=== PATIENT | female | born 1950 | race Hispanic/Latino ===

== ENCOUNTER 2019-08-14 13:35 | Emergency (ER) | payer MEDICARE ==
--- NOTE | 2019-08-14 14:16 | Emergency Department Report ---
ED Fall HPI - General Stated Complaint: FALL Time Seen by Provider: 08/14/19 14:15 Source: patient, EMS, RN notes reviewed, old records reviewed Mode of arrival: Stretcher Limitations: No Limitations - History of Present Illness Initial Comments: PT IS A 68 YO FEMALE WHO COMES TO ER FROM [place] [facility] FALL. SHE WAS IN THE BATHROOM WHEN STAFF FOUND HER ON THE FLOOR. THERE WAS ONLY A PERIOD OF 15 MINUTES WHERE BETWEEN WHEN STAFF LEFT HER AND THEN FOUND HER ON FLOOR. NO LOC. THEY STATE SHE IS AT HER USUAL MENTATION- PT HAS DEMENTIA. PT DENIES PAIN ON ARRIVAL TO ER BUT SHE IS A POOR INFORMANT GIVEN HER DEMENTIA CT HEAD/CSPINE ORDERED [facility] DENIES ANY RECENT COMPLAINTS OR PROBLEMS. 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 Witnessed: yes, by living facility s Place Fall Occurred: home Loss of Consciousness: none Prolonged Down Time?: no Location: head Associated Symptoms: denies - Related Data Previous Rx's Medication Instructions Recorded Last Taken Type levoFLOXacin [Levaquin TAB] 500 mg PO BID #10 tablet 08/14/19 Unknown Rx Allergies Allergy/AdvReac Type Severity Reaction Status Date / Time codeine Allergy Unknown Verified 08/14/19 14:40 pravastatin Allergy Unknown Verified 08/14/19 14:40 ED Review of Systems ROS: Stated complaint: FALL Other details as noted in HPI Comment: All other systems reviewed and negative ED Past Medical Hx - Past Medical History Previous Medical History?: Yes Hx Hypertension: Yes Hx Dementia: Yes - Family History Family history: no significant - Social History Smoking Status: Never Smoker Substance Use Type: None - Medications Home Medications: Home Medications Medication Instructions Recorded Confirmed Last Taken Type levoFLOXacin [Levaquin TAB] 500 mg PO BID #10 tablet 08/14/19 Unknown Rx ED Physical Exam - General General appearance: alert - Head Head exam: Present: atraumatic, normocephalic - Eye Eye exam: Present: normal appearance - ENT ENT exam: Present: mucous membranes dry - Neck Neck exam: Present: normal inspection - Respiratory Respiratory exam: Present: normal lung sounds bilaterally. Absent: respiratory distress - Cardiovascular Cardiovascular Exam: Present: regular rate, normal rhythm. Absent: systolic murmur, diastolic murmur, rubs, gallop - GI/Abdominal GI/Abdominal exam: Present: soft, normal bowel sounds - Rectal Rectal exam: Present: deferred - Extremities Exam Extremities exam: Present: normal inspection - Back Exam Back exam: Present: normal inspection - Neurological Exam Neurological exam: Present: alert, altered - Psychiatric Psychiatric exam: Present: agitated, anxious - Skin Skin exam: Present: warm, dry, intact, pallor. Absent: rash ED Course Vital Signs 08/14/19 08/14/19 14:10 18:00 Temperature 97.7 F Pulse Rate 70 62 Respiratory 16 18 Rate Blood Pressure 152/40 Blood Pressure 159/50 [Left] O2 Sat by Pulse 100 99 Oximetry - Reevaluation(s) Reevaluation #1: 08/14/19 17:24 MEDICATED WITH ATIVAN DUE TO HER AGITATION IN ER. ED Medical Decision Making - Lab Data Result diagrams: 08/14/19 14:55 08/14/19 14:55 - Radiology Data Radiology results: report reviewed, image reviewed interpreted by me: rick cabrera - Medical Decision Making Labs 08/14/19 08/14/19 08/14/19 14:55 14:55 16:55 WBC 10.9 RBC 3.65 Hgb 10.7 Hct 32.0 MCV 88 MCH 29 MCHC 34 RDW 16.5 H Plt Count 820 H Add Manual Diff Complete Total Counted 100 Seg Neuts % (Manual) 77.0 H Band Neutrophils % 0 Lymphocytes % (Manual) 13.0 L Reactive Lymphs % (Man) 0 Monocytes % (Manual) 9.0 H Eosinophils % (Manual) 1.0 Basophils % (Manual) 0 Metamyelocytes % 0 Myelocytes % 0 Promyelocytes % 0 Blast Cells % 0 Nucleated RBC % Not Reportable Seg Neutrophils # Man 8.4 H Band Neutrophils # 0.0 Lymphocytes # (Manual) 1.4 Abs React Lymphs (Man) 0.0 Monocytes # (Manual) 1.0 H Eosinophils # (Manual) 0.1 Basophils # (Manual) 0.0 Metamyelocytes # 0.0 Myelocytes # 0.0 Promyelocytes # 0.0 Blast Cells # 0.0 WBC Morphology Not Reportable Hypersegmented Neuts Not Reportable Hyposegmented Neuts Not Reportable Hypogranular Neuts Not Reportable Smudge Cells Not Reportable Toxic Granulation Not Reportable Toxic Vacuolation Not Reportable Dohle Bodies Not Reportable Pelger-Huet Anomaly Not Reportable Awa Rods Not Reportable Platelet Estimate Not Reportable Clumped Platelets Not Reportable Plt Clumps, EDTA Not Reportable Large Platelets Not Reportable Giant Platelets Not Reportable Platelet Satelliting Not Reportable Plt Morphology Comment Not Reportable RBC Morphology Normal Dimorphic RBCs Not Reportable Polychromasia Not Reportable Hypochromasia Not Reportable Poikilocytosis Not Reportable Anisocytosis Not Reportable Microcytosis Not Reportable Macrocytosis Not Reportable Spherocytes Not Reportable Pappenheimer Bodies Not Reportable Sickle Cells Not Reportable Target Cells Not Reportable Tear Drop Cells Not Reportable Ovalocytes Not Reportable Helmet Cells Not Reportable [place] Bodies Not Reportable [place] Rings Not Reportable Michael Cells Not Reportable Bite Cells Not Reportable Crenated Cell Not Reportable Elliptocytes Not Reportable Acanthocytes (Spur) Not Reportable Rouleaux Not Reportable Hemoglobin C Crystals Not Reportable Schistocytes Not Reportable Malaria parasites Not Reportable [place] Bodies Not Reportable Hem Pathologist Commnt No Sodium 138 Potassium 4.2 Chloride 101.4 Carbon Dioxide 24 Anion Gap 17 BUN 16 Creatinine 0.6 L Estimated GFR > 60 BUN/Creatinine Ratio 27 Glucose 180 H Calcium 8.3 L Total Bilirubin 0.20 AST 15 ALT 6 L Alkaline Phosphatase 77 Total Protein 6.2 L Albumin 3.2 L Albumin/Globulin Ratio 1.1 Urine Color Yellow Urine Turbidity Slightly-cloudy Urine pH 5.0 Ur Specific [place] 1.019 Urine Protein <15 mg/dl Urine Glucose (UA) Neg Urine Ketones 20 Urine Blood Neg Urine Nitrite Neg Urine Bilirubin Neg Urine Urobilinogen < 2.0 Ur Leukocyte Esterase Sm Urine WBC (Auto) 27.0 H Urine RBC (Auto) 1.0 U Epithel Cells (Auto) < 1.0 Urine Bacteria (Auto) 1+ Urine Mucus Few Vital Signs 08/14/19 14:10 Temperature 97.7 F Pulse Rate 70 Respiratory 16 Rate Blood Pressure 152/40 O2 Sat by Pulse [address] neg HEAD/SPINE urine noted PT DENIES ABD PAIN OR BACK PAIN NO LOCALIZING ON EXAM medicated in ER for UTI culture pending WBC normal on arrival to ER pt was in her usual state of health - she has AMS due to her dementia MEDICATED FOR UTI WITH NS/ROCEPHIN IN ER MEDICATED WITH ATIVAN FOR AGITATION DC HOME WITH DC PLAN OF CARE- RN TO REVIEW WITH SNF PT TO GET FOLLOW UP WITH PCP TO BE SURE UTI GOES AWAY WITH LEVAQUIN TREATMENT PT HAS HAD NO FEVER, TACHYCARDIA, OR HYPOTENSION - Differential Diagnosis ro fx Critical care attestation.: If time is entered above; I have spent that time in minutes in the direct care of this critically ill patient, excluding procedure time. ED Disposition Clinical Impression: UTI (urinary tract infection), Dehydration, Fall from ground level, Dementia Disposition: DC-01 TO HOME OR SELFCARE Is pt being admited?: No Does the pt Need Aspirin: No Condition: Stable Instructions: Urinary Tract Infection in Women (ED) Additional Instructions: KEEP PT WELL HYDRATED MOTRIN AND OR TYLENOL FOR PAIN OR FEVER ANTIBIOTIC UNTIL GONE PT NEEDS TO SEE PCP AFTER ANTIBIOTIC IS DONE TO BE SURE THIS HAS GOTTEN BETTER UTI IN ELDERLY CAN RESULT IN FALLS AND ALTERED MENTAL STATUS Prescriptions: levoFLOXacin [Levaquin TAB] 500 mg PO BID #10 tablet Referrals: WHIT BANSAL MD [Staff Physician] - 3-5 Days Time of Disposition: 17:20
[2019-08-14 15:09] LABS: Hemoglobin 10.7 gm/dl (10.1-14.3); Mean Corpuscular HGB Conc 34 % (30-34); Mean Corpuscular Volume 88 fl (79-97); Platelet Count 820 K/mm3 (140-440); Red Blood Count 3.65 M/mm3 (3.65-5.03); Red Cell Distribution Width 16.5 % (13.2-15.2)
[2019-08-14 15:32] LABS: Alanine Aminotransferase 6 units/L (7-56); Albumin 3.2 g/dL (3.9-5); BUN/Creatinine Ratio 27; Blood Urea Nitrogen 16 mg/dL (7-17); Calcium 8.3 mg/dL (8.4-10.2); Hemolysis Index 13
--- NOTE | 2019-08-14 15:37 | Cat Scan Report ---
CT HEAD WITHOUT CONTRAST INDICATION / CLINICAL INFORMATION: Fall with loss of consciousness, altered mental status. TECHNIQUE: Axial imaging performed from the skull apex through the skull base without the use of cont rast. Sagittal and coronal reformatted images. All CT scans at this location are performed using CT dose reduction for ALARA by means of automated exposure control. COMPARISON: None available. FINDINGS: CEREBRAL PARENCHYMA: Mild cortical volume loss is noted. Chronic cortical infarct in the posterior ri ght frontal lobe measures up to 2.1 cm in diameter. A smaller chronic cortical infarct in the posteri or superior right frontal lobe measures 1.3 cm. No evidence for acute ischemia, mass or mass effect o n noncontrast CT. HEMORRHAGE: None. EXTRA-AXIAL SPACES: Normal in size and morphology for the patient's age. VENTRICULAR SYSTEM: Normal in size and morphology for the patient's age. MIDLINE SHIFT OR HERNIATION: None. CEREBELLUM / BRAINSTEM: No significant abnormality. CALVARIUM: No significant abnormality. ORBITS: Normal as visualized. PARANASAL SINUSES / MASTOID AIR CELLS: Normal as visualized. SOFT TISSUES of HEAD: No significant abnormality. ADDITIONAL FINDINGS: None. IMPRESSION: No acute intracranial abnormality. Mild volume loss. Chronic right frontal lobe infarcts as described . Signer Name: Terry Mujica Jr, MD Signed: 08/14/2019 3:32 PM Workstation Name: [id number]
[2019-08-14 16:32] LABS: Basophils % (Manual) 0 % (0.0-1.8); Total Cells Counted 100
[2019-08-14 16:33] LABS: RBC Morphology Normal
[2019-08-14] MEDS ORDERED: clonazePAM 0.5 MG TAB PO ONE (16:55)
--- NOTE | 2019-08-14 16:55 | Cat Scan Report ---
CT cervical spine wo con INDICATION / CLINICAL INFORMATION: 68 years Female; fall with loc. TECHNIQUE: Axial CT images of the cervical spine were obtained. Sagittal and coronal reformatted images were pr oduced. All CT scans at this location are performed using CT dose reduction for ALARA by means of aut omated exposure control. COMPARISON: None available. FINDINGS: POST-SURGICAL CHANGES: None. ALIGNMENT: Normal cervical lordosis seen without significant scoliosis. VERTEBRAE: There is no CT evidence of acute fracture involving the cervical spine at. INTRAVERTEBRAL DISCS: The central disc bulge at C4-5 appears to efface the ventral subarachnoid space . There is mild right neural foraminal narrowing. There is mild disc space narrowing at C5-6 with spo ndylosis which also effaces the ventral subarachnoid space. There appears be moderate right neural fo raminal narrowing. PARASPINAL SOFT TISSUES: No prevertebral soft tissue fluid collections are identified. There are mult iple surgical clips along the carotid sheaths at. ADDITIONAL FINDINGS: None. IMPRESSION: 1. There is no CT evidence of acute fracture involving the cervical spine. Signer Name: Boni Yusuf MD Signed: 08/14/2019 4:51 PM Workstation Name: [id number]
[2019-08-14] MEDS ORDERED: LORazepam 2 MG/ML VIAL IM ONE (16:58)
[2019-08-14] MEDS ORDERED: LORazepam 2 MG/ML VIAL ONE (17:00)
[2019-08-14 17:06] LABS: Bacteria,Urine 1+ /HPF (Negative); Bilirubin,Urine NEG (Negative); Blood,Urine NEG (Negative); Color,Urine Yellow (Yellow); Mucus,Urine FEW /HPF; Protein,Urine <15 mg/dL mg/dL (Negative); Urobilinogen,Urine < 2.0 mg/dL (<2.0)
[2019-08-14] MEDS ORDERED: SODIUM CHLORIDE 0.9% 1000 ML 1,000 ML IV ONE (17:12)
[2019-08-14] MEDS ORDERED: cefTRIAXone/NS 1 GM/50 ML 1 GM/50 ML BAG IV ONE (17:12)
[2019-08-14 19:25] VITALS: BP 127/60
== END 2019-08-14 19:00 | disposition home or self-care (01) ==
LOC: ED 13:35
DX: F03.90 Unspecified dementia, unspecified severity, without behavioral disturbance, psychotic disturbance, mood disturbance, and anxiety (principal); N39.0 Urinary tract infection, site not specified; E86.0 Dehydration; I10 Essential (primary) hypertension; Z88.6 Allergy status to analgesic agent; Z88.8 Allergy status to other drugs, medicaments and biological substances; W18.39XA Other fall on same level, initial encounter; Y93.89 Activity, other specified; Y92.89 Other specified places as the place of occurrence of the external cause; Y99.8 Other external cause status
CPT/HCPCS: 36415; 70450; 72125; 80053; 81001; 85007; 85025; 87086; 96365; 96372; 99284; J0696; J2060; J7030

== ENCOUNTER 2019-09-06 21:08 | Inpatient (IN) | payer MEDICARE ==
--- NOTE | 2019-09-06 22:20 | Emergency Department Report ---
ED CPR HPI - General Chief Complaint: Dyspnea/Respdistress Stated Complaint: ASPIRATION Time Seen by Provider: 09/06/19 22:14 Source: EMS Mode of arrival: Stretcher Limitations: Altered Mental Status, Physical Limitation - History of Present Illness Initial Comments: Patient is a 68-year-old female that presents emergency room for difficulty breathing. Patient was choking on a meatball at her senior care and the staff attempted the Heimlich but were never successful. The EMS then attempted a Heimlich valve on process. Per EMS report the patient then went asystole and the patient was laid on the ground in order to attempt intubation. CPR was s tarted and the patient was intubated and subsequently vomited and extubated herself. Patient then regained spontaneous return of circulation. Patient self extubated. Patient not asked to intubate at this time. Patient was then brought to the ER for evaluation. Patient has history of dementia and is currently A&O x1. Patient denies pain. Patient has facial bruising and per the medical record the patient was seen here a few days ago for a fall. MD Complaint: stopped breathing -: minute(s) Place: home Bystander CPR Performed: Yes AED Applied by Bystander/Scraper Tender: No Initial Findings in the Field: lethargic ROSC in the Field: Yes Associated Injuries: No Associated Symptoms: shortness of breath, other (chocking) Treatments Prior to Arrival: intubation (and extubation) - Related Data Home Medications Medication Instructions Recorded Confirmed Last Taken Aspirin [Aspirin BABY CHEW TAB] 81 mg PO QDAY 08/15/19 08/15/19 Unknown Cholecalciferol Vit D3 [Vitamin D3 1,000 units PO QDAY 08/15/19 08/15/19 Unknown 1,000 UNIT TAB] Divalproex Dr [DepLady WISE] 500 mg PO BID 08/15/19 08/15/19 Unknown Ferrous Sulfate [Iron 325 MG] 325 mg PO QDAY 08/15/19 08/15/19 Unknown Hydroxyzine HCl [hydrOXYzine] 25 mg PO Q6H 08/15/19 08/15/19 Unknown Insulin Glargine,Hum.rec.anlog 100 unit SQ QDAY 08/15/19 08/15/19 Unknown [Jacquie Silva U-100] Memantine [Namenda] 10 mg PO HS 08/15/19 08/15/19 Unknown clonazePAM [ Klonopin] 0.5 mg PO BID PRN 08/15/19 08/15/19 Unknown donepeziL [Aricept] 10 mg PO QDAY 08/15/19 08/15/19 Unknown levoFLOXacin [Levaquin TAB] 500 mg PO BID 08/15/19 08/15/19 Unknown risperiDONE [RisperDAL] 1 mg PO HS 08/15/19 08/15/19 Unknown traMADoL [Ultram] 50 mg PO Q6HR PRN 08/15/19 08/15/19 Unknown traZODone [Desyrel] 50 mg PO QHS 08/15/19 08/15/19 Unknown Allergies Allergy/AdvReac Type Severity Reaction Status Date / Time No Known Allergies Allergy Verified 08/15/19 15:35 ED Review of Systems ROS: Stated complaint: ASPIRATION Other details as noted in HPI Comment: Unobtainable due to pts medical conditions ED Past Medical Hx - Past Medical History Previous Medical History?: Yes Hx Hypertension: Yes Hx Diabetes: Yes Hx Dementia: Yes - Surgical History Past Surgical History?: No - Family History Family history: no significant - Social History Smoking Status: Never Smoker Substance Use Type: None - Medications Home Medications: Home Medications Medication Instructions Recorded Confirmed Last Taken Type Aspirin [Aspirin BABY CHEW TAB] 81 mg PO QDAY 08/15/19 08/15/19 Unknown History Cholecalciferol Vit D3 [Vitamin D3 1,000 units PO QDAY 08/15/19 08/15/19 Unknown History 1,000 UNIT TAB] Divalproex [Rory WISE] 500 mg PO BID 08/15/19 08/15/19 Unknown History Ferrous Sulfate [Iron 325 MG] 325 mg PO QDAY 08/15/19 08/15/19 Unknown History Hydroxyzine HCl [hydrOXYzine] 25 mg PO Q6H 08/15/19 08/15/19 Unknown History Insulin Glargine,Hum.rec.anlog 100 unit SQ QDAY 08/15/19 08/15/19 Unknown History [Basalejandra Silva U-100] Memantine [Namenda] 10 mg PO HS 08/15/19 08/15/19 Unknown History clonazePAM [ Klonopin] 0.5 mg PO BID PRN 08/15/19 08/15/19 Unknown History donepeziL [Aricept] 10 mg PO QDAY 08/15/19 08/15/19 Unknown History levoFLOXacin [Levaquin TAB] 500 mg PO BID 08/15/19 08/15/19 Unknown History risperiDONE [RisperDAL] 1 mg PO HS 08/15/19 08/15/19 Unknown History traMADoL [Ultram] 50 mg PO Q6HR PRN 08/15/19 08/15/19 Unknown History traZODone [Desyrel] 50 mg PO QHS 08/15/19 08/15/19 Unknown History ED Physical Exam - General Limitations: Altered Mental Status, Physical Limitation General appearance: alert, in no apparent distress - Head Head exam: Present: atraumatic, normocephalic - Eye Eye exam: Present: normal appearance, PERRL Pupils: Present: normal accommodation - ENT ENT exam: Present: mucous membranes moist, other (Bilateral orbital hematomas., Appear to be aged) - Neck Neck exam: Present: normal inspection - Respiratory Respiratory exam: Present: normal lung sounds bilaterally. Absent: respiratory distress, wheezes, rales - Cardiovascular Cardiovascular Exam: Present: regular rate, normal rhythm. Absent: systolic murmur, diastolic murmur, rubs, gallop - GI/Abdominal GI/Abdominal exam: Present: soft, normal bowel sounds. Absent: distended, tenderness, guarding - Rectal Rectal exam: Present: deferred - Extremities Exam Extremities exam: Present: normal inspection - Back Exam Back exam: Present: normal inspection - Neurological Exam Neurological exam: Present: alert, altered - Psychiatric Psychiatric exam: Present: flat affect - Skin Skin exam: Present: warm, dry, intact, normal color, ecchymosis (Bilateral eye). Absent: rash ED Course Vital Signs 09/06/19 09/06/19 09/06/19 21:25 23:26 23:35 Temperature 98.4 F Pulse Rate 84 71 Respiratory 20 18 16 Rate Blood Pressure 128/32 Blood Pressure 126/48 [Left] O2 Sat by Pulse 83 L 95 95 Oximetry 09/06/19 09/07/19 09/07/19 23:51 00:01 00:15 Temperature Pulse Rate 88 Respiratory 16 Rate Blood Pressure 128/32 140/51 140/51 Blood Pressure [Left] O2 Sat by Pulse 96 78 L Oximetry - Reevaluation(s) Reevaluation #1: I discussed all results with patient. I discussed plan of care with patient. Patient agrees with plan of care and admission. Patient to be admitted to the ospitalist service. 09/07/19 00:55 - Consultations Consultation #1: Hospitalist consulted for admission. Hospitalist to admit patient. . 09/07/19 00:55 ED Medical Decision Making - Lab Data Result diagrams: 09/06/19 23:09 09/06/19 23:09 - EKG Data -: EKG Interpreted by Me EKG shows normal: sinus rhythm, axis, intervals, QRS complexes, ST-T waves Rate: normal - Radiology Data Radiology results: report reviewed, image reviewed interpreted by me: No acute findings on chest x-ray Head CT without intravenous contrast INDICATION: Closed head trauma COMPARISON: 08/15/2019 FINDINGS: The ventricles are normal in size and position. No hemorrhage or extra-axial fluid collection. No edema or mass effect. Remote ischemia in the posterior right frontal lobe is old and unchanged. Portions of the sinuses visualized are clear. No skull fracture identified. Moderate atrophic changes are again seen. A left frontal scalp hematoma is now seen however. IMPRESSION: New left frontal scalp hematoma but no underlying skull fracture or acute intracranial abnormality. - Medical Decision Making Patient is a 68-year-old female that presents emergency room for aspiration, choking and cardiac arrest. Patient had a brief cardiac arrest witnessed by EMS. CPR was initiated and patient had spontaneous return of circulation. Patient had labs done which show an elevated WBC, elevated troponin, lactic acidosis. Patient admitted to the hospitalist service. Patient admitted to the hospital service for further evaluation and treatment. Patient's head CT shows no acute intracranial findings but shows a scalp hematoma. Patient had a fall 2 or 3 days ago and was seen here for evaluation. Patient bruising is not new. - Differential Diagnosis Cardiac arrest, return of circulation, aspiration, vasovagal, AMS Critical Care Time: Yes Critical care time in (mins) excluding proc time.: 35 Critical care attestation.: If time is entered above; I have spent that time in minutes in the direct care of this critically ill patient, excluding procedure time. Critical Care Time: 35 minutes ED Disposition Clinical Impression: Cardiac arrest, LOC (loss of consciousness), Lactic acid acidosis, Elevated troponin Choking Qualifiers: Encounter type: initial encounter Qualified Code(s): T17.308A - Unspecified foreign body in larynx causing other injury, initial encounter AMS (altered mental status) Qualifiers: Altered mental status type: unspecified Qualified Code(s): R41.82 - Altered mental status, unspecified Disposition: DC-09 OP ADMIT IP TO THIS HOSP Is pt being admited?: Yes Does the pt Need Aspirin: No Condition: Critical Time of Disposition: 00:55
--- NOTE | 2019-09-06 22:40 | XRay Report ---
CHEST 1 VIEW, 09/06/2019 10:11 PM CLINICAL INFORMATION/INDICATION: Chest pain. Shortness of breath. COMPARISON: Chest radiograph, 08/15/2019 FINDINGS: SUPPORT DEVICES: None. HEART: The cardiac silhouette is normal in size. LUNGS/PLEURA: The lungs are clear of focal airspace disease or significant pleural effusion. ADDITIONAL FINDINGS: No additional acute findings. IMPRESSION: 1. No evidence of acute cardiopulmonary process. Signer Name: Casie Alonzo MD Signed: 09/06/2019 10:36 PM Workstation Name: [id number]
[2019-09-06] MEDS ORDERED: IPRATROPIUM/ALBUTEROL SULFATE 3 ML AMPUL.NEB IH ONE (22:46)
[2019-09-06 23:31] LABS: Basophils % (Auto) 0.2 % (0.0-1.8); Eosinophils % (Auto) 0.3 % (0.0-4.3); Hematocrit 36.2 % (30.3-42.9); Hemoglobin 11.7 gm/dl (10.1-14.3); Lymphocytes # (Auto) 0.7 K/mm3 (1.2-5.4); Lymphocytes % (Auto) 4.4 % (13.4-35.0); Mean Corpuscular HGB Conc 32 % (30-34); Mean Corpuscular Volume 88 fl (79-97); Monocytes # (Auto) 1.2 K/mm3 (0.0-0.8); Monocytes % (Auto) 8.1 % (0.0-7.3); Platelet Count 660 K/mm3 (140-440); Red Blood Count 4.13 M/mm3 (3.65-5.03); Red Cell Distribution Width 15.8 % (13.2-15.2)
[2019-09-06 23:43] LABS: Creatine Kinase MB 3.3 ng/mL (0.0-4.0)
[2019-09-06 23:57] LABS: Bacteria,Urine 1+ /HPF (Negative); Bilirubin,Urine NEG (Negative); Blood,Urine NEG (Negative); Color,Urine Straw (Yellow); Protein,Urine <15 mg/dL mg/dL (Negative); Urobilinogen,Urine < 2.0 mg/dL (<2.0)
[2019-09-06] MEDS ORDERED: CEFEPIME/NS 2 GM/100 ML 2 GM/100 ML BAG IV ONE (23:57)
[2019-09-07 00:10] LABS: Alanine Aminotransferase 17 units/L (7-56); Albumin 3.3 g/dL (3.9-5); BUN/Creatinine Ratio 24; Blood Urea Nitrogen 19 mg/dL (7-17); Calcium 8.8 mg/dL (8.4-10.2); Hemolysis Index 10
--- NOTE | 2019-09-07 00:42 | Cat Scan Report ---
Head CT without intravenous contrast INDICATION: Closed head trauma COMPARISON: 08/15/2019 FINDINGS: The ventricles are normal in size and position. No hemorrhage or extra-axial fluid collecti on. No edema or mass effect. Remote ischemia in the posterior right frontal lobe is old and unchanged . Portions of the sinuses visualized are clear. No skull fracture identified. Moderate atrophic gallardo es are again seen. A left frontal scalp hematoma is now seen however. IMPRESSION: New left frontal scalp hematoma but no underlying skull fracture or acute intracranial ab normality. Automated exposure control was utilized to diminish radiation dose Signer Name: Kamlesh Díaz MD Signed: 09/07/2019 12:37 AM Workstation Name: [id number]
[2019-09-07] MEDS ORDERED: SODIUM CHLORIDE 0.9% 1000 ML 1,000 ML IV ONE (00:57)
[2019-09-07] MEDS ORDERED: DEXTROSE 50% IN WATER (25GM) 50 ML SYRINGE IV PRN (01:32)
[2019-09-07] MEDS ORDERED: ONDANSETRON 4 MG/2 ML INJ IV PRN (01:32)
--- NOTE | 2019-09-07 01:32 | History and Physical Report ---
History of Present Illness History of present illness: 68-year-old woman with a history of hypertension, diabetes, dementia [facility]. History is per the chart, it was reported that the patient choked on meat ball, the staff tried to do Heimlich maneuver without success. EMS was called, patient went asystole and CPR was initiated, patient was intubated. Patient started having vomiting, she self extubated herself. Status post recent fall at the [facility]. Review of system unobtainable secondary to dementia PAST MEDICAL HISTORY: hypertension, diabetes, dementia PAST SURGICAL HISTORY: Unknown SOCIAL HISTORY: halfway resident FAMILY HISTORY: Unknown Medications and Allergies Allergies Allergy/AdvReac Type Severity Reaction Status Date / Time No Known Allergies Allergy Verified 08/15/19 15:35 Home Medications Medication Instructions Recorded Confirmed Last Taken Type Aspirin [Aspirin BABY CHEW TAB] 81 mg PO QDAY 08/15/19 09/07/19 Unknown History Cholecalciferol Vit D3 [Vitamin D3 1,000 units PO QDAY 08/15/19 09/07/19 Unknown History 1,000 UNIT TAB] Divalproex Dr [DepaKOTE DR] 500 mg PO BID 08/15/19 09/07/19 Unknown History Ferrous Sulfate [Iron 325 MG] 325 mg PO QDAY 08/15/19 09/07/19 Unknown History Hydroxyzine HCl [hydrOXYzine] 25 mg PO Q6H 08/15/19 09/07/19 Unknown History Insulin Glargine,Hum.rec.anlog 100 unit SQ QDAY 08/15/19 09/07/19 Unknown History [Jacquie Silva U-100] Memantine [Namenda] 10 mg PO HS 08/15/19 09/07/19 Unknown History clonazePAM [ Klonopin] 0.5 mg PO BID PRN 08/15/19 09/07/19 Unknown History donepeziL [Aricept] 10 mg PO QDAY 08/15/19 09/07/19 Unknown History levoFLOXacin [Levaquin TAB] 500 mg PO BID 08/15/19 09/07/19 Unknown History risperiDONE [RisperDAL] 1 mg PO HS 08/15/19 09/07/19 Unknown History traMADoL [Ultram] 50 mg PO Q6HR PRN 08/15/19 09/07/19 Unknown History traZODone [Desyrel] 50 mg PO QHS 08/15/19 09/07/19 Unknown History Active Meds: Active Medications Enoxaparin Sodium (Enoxaparin) 30 mg SUB-Q QDAY SOPHIE Sodium Chloride (Nacl 0.9% 1000 Ml) 1,000 mls @ 999 mls/hr IV BOLUS ONE Stop: 09/07/19 01:57 Last Admin: 09/07/19 01:14 Dose: 999 mls/hr Documented by: Exam - Physical Exam Narrative exam: Gen. appearance: Patient lying in bed, no apparent distress HEENT: Normocephalic, bruises all at the eyes, pupils equally round and reactive to light, extraocular movement intact, and no sclericterus,. No JVD or thyromegaly or nodule,neck supple, no carotid bruit ,mucous membranes moist, no exudate or erythema Heart: S1, S2, regular rate and rhythm Lungs: Clear bilaterally, breathing comfortable Abdomen: Positive bowel sounds, nontender, nondistended, no organomegaly Extremity: no edema, cyanosis, clubbing Skin: No rash, nodules, warm, dry Neuro: speech is fluent, moves extremities, sensory intact - Constitutional Vitals: Temp Pulse Resp BP Pulse Ox 98.4 F 113 H 28 H 108/87 78 L 09/06/19 21:25 09/07/19 00:31 09/07/19 00:31 09/07/19 00:31 09/07/19 00:01 Results - Labs CBC & Chem 7: 09/06/19 23:09 09/06/19 23:09 Labs: Abnormal lab results 09/06/19 09/06/19 09/06/19 Range/Units 23:09 23:09 23:09 WBC 15.2 H (4.5-11.0) K/mm3 RDW 15.8 H (13.2-15.2) % Plt Count 660 H (140-440) K/mm3 Lymph % (Auto) 4.4 L (13.4-35.0) % [place] % (Auto) 8.1 H (0.0-7.3) % Lymph # 0.7 L (1.2-5.4) K/mm3 [place] # 1.2 H (0.0-0.8) K/mm3 Seg Neutrophils % 87.0 H (40.0-70.0) % Seg Neutrophils # 13.2 H (1.8-7.7) K/mm3 Chloride 95.7 L (98-107) mmol/L BUN 19 H (7-17) mg/dL Glucose 371 H (65-100) mg/dL Lactic Acid 2.90 H* (0.7-2.0) mmol/L Troponin T 0.055 H (0.00-0.029) ng/mL Albumin 3.3 L (3.9-5) g/dL 09/07/19 Range/Units 00:13 WBC (4.5-11.0) K/mm3 RDW (13.2-15.2) % Plt Count (140-440) K/mm3 Lymph % (Auto) (13.4-35.0) % [place] % (Auto) (0.0-7.3) % Lymph # (1.2-5.4) K/mm3 [place] # (0.0-0.8) K/mm3 Seg Neutrophils % (40.0-70.0) % Seg Neutrophils # (1.8-7.7) K/mm3 Chloride (98-107) mmol/L BUN (7-17) mg/dL Glucose (65-100) mg/dL Lactic Acid 2.60 H* (0.7-2.0) mmol/L Troponin T (0.00-0.029) ng/mL Albumin (3.9-5) g/dL - Imaging and Cardiology EKG: image reviewed Chest x-ray: report reviewed CT Scan - head: report reviewed Assessment and Plan Assessment Status post cardiac arrest secondary to choking event Check cardiac enzymes, echo, consult cardiology Choking Bowel rest, consult speech therapy for evaluation Possible aspiration pneumonia Start IV Zosyn Diabetes Check fingersticks, hold sliding scale for now Hypertension DVT prophylaxis
[2019-09-07] MEDS: PIPERACIL/TAZOBACTA 4.5/NS 100 4.5 GM/100 ML VIAL IV SCH ×3 (02:12→18:46)
[2019-09-07 02:31] LABS: Creatine Kinase MB 3.8 ng/mL (0.0-4.0)
[2019-09-07] MEDS: SODIUM CHLORIDE 0.45% 1000 ML 1,000 ML IV SCH ×2 (04:06→18:46)
[2019-09-07] MEDS ORDERED: PIPERACIL/TAZOBACTA 4.5/NS 100 4.5 GM/100 ML VIAL IV SCH (06:00)
[2019-09-07 06:13] LABS: Chol/HDL Ratio 3.92 %; HDL Cholesterol 53 mg/dL (40-59); LDL Cholesterol,Direct 133 mg/dL (50-130)
[2019-09-07 08:15] LABS: Creatine Kinase MB 3.9 ng/mL (0.0-4.0)
--- NOTE | 2019-09-07 08:59 | Event Note ---
Date: 09/07/19 Patient choked on food, meatball, had cardiac arrest, intubated. She later self-extubated. now awake,alert. I have seen and examined her.
[2019-09-07] MEDS ORDERED: ENOXAPARIN 30 MG/0.3 ML INJ SUB-Q SCH (10:00)
[2019-09-07] MEDS: ENOXAPARIN 40 MG/0.4 ML INJ SUB-Q SCH (10:09)
--- NOTE | 2019-09-07 16:34 | Consultation ---
History of Present Illness Consult date: 09/07/19 Requesting physician: ALEKS FONTAINE Consult reason: elevated troponin History of present illness: 68-year-old female who resides in a senior care and has a past medical history of dementia, diabetes, and hypertension presented to [facility] emergency department by EMS after apparently choking on a meat ball and subsequently losing consciousness. The senior care staff and EMS attempted Heimlich maneuver which was unsuccessful. The patient subsequently went into asystolic arrest and at that time intubation was attempted. The patient subsequently vomited and self extubated. In the emergency department the patient was noted to have elevated cardiac troponins and an elevated white coun t. Currently now the patient is extubated awake and responding to questions. Past History Past Medical History: diabetes, hypertension, other (Dementia) Past Surgical History: Other (Unknown) Social history: denies: prescription drug abuse, IV drug use Family history: no significant family history Medications and Allergies Allergies Allergy/AdvReac Type Severity Reaction Status Date / Time No Known Allergies Allergy Verified 08/15/19 15:35 Home Medications Medication Instructions Recorded Confirmed Last Taken Type Aspirin [Aspirin BABY CHEW TAB] 81 mg PO QDAY 08/15/19 09/07/19 Unknown History Cholecalciferol Vit D3 [Vitamin D3 1,000 units PO QDAY 08/15/19 09/07/19 Unknown History 1,000 UNIT TAB] Divalproex [Rory WISE] 500 mg PO BID 08/15/19 09/07/19 Unknown History Ferrous Sulfate [Iron 325 MG] 325 mg PO QDAY 08/15/19 09/07/19 Unknown History Hydroxyzine HCl [hydrOXYzine] 25 mg PO Q6H 08/15/19 09/07/19 Unknown History Insulin Glargine,Hum.rec.anlog 100 unit SQ QDAY 08/15/19 09/07/19 Unknown History [Jacquie Silva U-100] Memantine [Namenda] 10 mg PO HS 08/15/19 09/07/19 Unknown History clonazePAM [ Klonopin] 0.5 mg PO BID PRN 08/15/19 09/07/19 Unknown History donepeziL [Aricept] 10 mg PO QDAY 08/15/19 09/07/19 Unknown History levoFLOXacin [Levaquin TAB] 500 mg PO BID 08/15/19 09/07/19 Unknown History risperiDONE [RisperDAL] 1 mg PO HS 08/15/19 09/07/19 Unknown History traMADoL [Ultram] 50 mg PO Q6HR PRN 08/15/19 09/07/19 Unknown History traZODone [Desyrel] 50 mg PO QHS 08/15/19 09/07/19 Unknown History Active Meds: Active Medications Dextrose (D50w (25gm) Syringe) 50 ml IV Q30MIN PRN; Protocol PRN Reason: Hypoglycemia Enoxaparin Sodium (Enoxaparin) 40 mg SUB-Q QDAY@1000 SOPHIE Last Admin: 09/07/19 10:09 Dose: 40 mg Documented by: Sodium Chloride (Nacl 0.45% 1000 Ml) 1,000 mls @ 75 mls/hr IV DIRECT SOPHIE Last Admin: 09/07/19 04:06 Dose: 75 mls/hr Documented by: Piperacillin Sod/Tazobactam Sod (Zosyn/Ns 4.5gm/100ml) 4.5 gm in 100 mls @ 200 mls/hr IV Q8H SOPHIE; Protocol Last Admin: 09/07/19 10:08 Dose: 200 mls/hr Documented by: Ondansetron HCl (Zofran) 4 mg IV Q8H PRN PRN Reason: Nausea And Vomiting Sodium Chloride (Sodium Chloride Flush Syringe 10 Ml) 10 ml IV BID [facility] Last Admin: 09/07/19 10:09 Dose: 10 ml Documented by: Sodium Chloride (Sodium Chloride Flush Syringe 10 Ml) 10 ml IV PRN PRN PRN Reason: LINE FLUSH Review of Systems ROS unobtainable: due to mental status (Not obtainable given the patient has dementia. Currently she denies any significant complaints. She just wants someone to come and speak with her.) Physical Examination Vital Signs Temp Pulse Resp BP Pulse Ox 98.4 F 84 20 126/48 83 L 09/06/19 21:25 09/06/19 21:25 09/06/19 21:25 09/06/19 21:25 09/06/19 21:25 General appearance: no acute distress HEENT: Positive: Other (Bilateral black eyes and left frontal ecchymoses/hematoma) Neck: Positive: neck supple, trachea midline Cardiac: Positive: Reg Rate and Rhythm Lungs: Positive: clear to auscultation, Normal Breath Sounds Neuro: Positive: Other (Dementia) Abdomen: Positive: Soft, Active Bowel Sounds Female genitourinary: deferred Skin: Negative: Rash Extremities: Present: warm. Absent: edema Results 09/06/19 23:09 09/06/19 23:09 Cardiac Enzymes 09/06/19 09/06/19 09/07/19 Range/Units 23:09 23:09 01:46 AST 26 (5-40) units/L CK-MB (CK-2) Cancelled 3.3 3.8 09/07/19 Range/Units 07:22 AST (5-40) units/L CK-MB (CK-2) 3.9 Lipids 09/06/19 Range/Units 23:09 Triglycerides 123 (2-149) mg/dL Cholesterol 208 H (50-199) mg/dL HDL Cholesterol 53 (40-59) mg/dL Cholesterol/HDL Ratio 3.92 % CBC 09/06/19 Range/Units 23:09 WBC 15.2 H (4.5-11.0) K/mm3 RBC 4.13 (3.65-5.03) M/mm3 Hgb 11.7 (10.1-14.3) gm/dl Hct 36.2 (30.3-42.9) % Plt Count 660 H (140-440) K/mm3 Lymph # 0.7 L (1.2-5.4) K/mm3 [place] # 1.2 H (0.0-0.8) K/mm3 Eos # 0.0 (0.0-0.4) K/mm3 Baso # 0.0 (0.0-0.1) K/mm3 Comprehensive Metabolic Panel 09/06/19 Range/Units 23:09 Sodium 137 (137-145) mmol/L Potassium 4.1 (3.6-5.0) mmol/L Chloride 95.7 L (98-107) mmol/L Carbon Dioxide 26 (22-30) mmol/L BUN 19 H (7-17) mg/dL Creatinine 0.8 (0.7-1.2) mg/dL Glucose 371 H (65-100) mg/dL Calcium 8.8 (8.4-10.2) mg/dL AST 26 (5-40) units/L ALT 17 (7-56) units/L Alkaline Phosphatase 88 (35-129) units/L Total Protein 6.9 (6.3-8.2) g/dL Albumin 3.3 L (3.9-5) g/dL - Imaging and Cardiology Echo: pending EKG interpretations - Telemetry EKG Rhythm: Sinus Rhythm Assessment and Plan 68-year-old female Dementia/resides in a senior care Diabetes Hypertension Head trauma/left hematoma Asystolic arrest secondary to choking episode Elevated cardiac enzymes likely secondary to asystolic arrest No evidence of acute cardiac event Echocardiogram pending
[2019-09-07] MEDS ORDERED: HALOPERIDOL LACTATE 5 MG/1 ML INJ IM ONE (21:17)
[2019-09-08] MEDS: PIPERACIL/TAZOBACTA 4.5/NS 100 4.5 GM/100 ML VIAL IV SCH ×3 (01:39→17:16)
[2019-09-08 06:01] LABS: Basophils # (Auto) 0.1 K/mm3 (0.0-0.1); Basophils % (Auto) 0.8 % (0.0-1.8); Eosinophils # (Auto) 0.1 K/mm3 (0.0-0.4); Eosinophils % (Auto) 1.1 % (0.0-4.3); Hematocrit 33.3 % (30.3-42.9); Hemoglobin 10.9 gm/dl (10.1-14.3); Lymphocytes # (Auto) 1.5 K/mm3 (1.2-5.4); Lymphocytes % (Auto) 11.6 % (13.4-35.0); Mean Corpuscular HGB Conc 33 % (30-34); Mean Corpuscular Volume 86 fl (79-97); Monocytes # (Auto) 1.4 K/mm3 (0.0-0.8); Monocytes % (Auto) 10.9 % (0.0-7.3); Platelet Count 662 K/mm3 (140-440); Red Blood Count 3.86 M/mm3 (3.65-5.03); Red Cell Distribution Width 15.8 % (13.2-15.2)
[2019-09-08 06:55] LABS: BUN/Creatinine Ratio 20; Blood Urea Nitrogen 12 mg/dL (7-17); Calcium 8.4 mg/dL (8.4-10.2); Hemolysis Index 53
[2019-09-08] MEDS: ENOXAPARIN 40 MG/0.4 ML INJ SUB-Q SCH (11:59)
[2019-09-08] MEDS: SODIUM CHLORIDE 0.45% 1000 ML 1,000 ML IV SCH (12:01)
--- NOTE | 2019-09-08 14:21 | Progress Note ---
Assessment and Plan Assessment and plan: Status post cardiac arrest secondary to choking event consulted cardiology, following I discussed with Dr. Ricardo Choking Patient choked on food, meatball, had cardiac arrest, She has been seen by Speech Pathologist, now put on mechanical soft diet Diabetes mellitus type 2 Check fingersticks, hold sliding scale for now Dementia Hypertension Monitor DVT prophylaxis Cont Lovenox Patient stable to transfer to Medical Floor. History Interval history: Patient choked on food, meatball, had cardiac arrest, intubated. She later self-extubated. now awake,alert. Hospitalist Physical - Physical exam Narrative exam: GEN: Not in acute distress, lying in bed, obese HEENT: Hematoma left frontal area, Neck: supple, No JVD Lungs: Clear to auscultation, heart;S1 and S2 reg, no murmurs, rubs or gallop Abd:soft, non tender, non distended, normal bowel sounds Ext: No edema, no clubbing, no cyanosis Neuro: Awake,alert, oriented to person, not to place or time, - Constitutional Vitals: Temp Pulse Resp BP Pulse Ox 99.6 F 61 18 132/38 97 09/08/19 08:00 09/08/19 14:11 09/08/19 14:11 09/08/19 14:11 09/08/19 14:11 General appearance: Present: no acute distress Results - Labs CBC & Chem 7: 09/08/19 04:13 09/08/19 04:13 Labs: Laboratory Last Values WBC 13.0 K/mm3 (4.5-11.0) H 09/08/19 04:13 RBC 3.86 M/mm3 (3.65-5.03) 09/08/19 04:13 Hgb 10.9 gm/dl (10.1-14.3) 09/08/19 04:13 Hct 33.3 % (30.3-42.9) 09/08/19 04:13 MCV 86 fl (79-97) 09/08/19 04:13 MCH 28 pg (28-32) 09/08/19 04:13 MCHC 33 % (30-34) 09/08/19 04:13 RDW 15.8 % (13.2-15.2) H 09/08/19 04:13 Plt Count 662 K/mm3 (140-440) H 09/08/19 04:13 Lymph % (Auto) 11.6 % (13.4-35.0) L 09/08/19 04:13 [place] % (Auto) 10.9 % (0.0-7.3) H 09/08/19 04:13 Eos % (Auto) 1.1 % (0.0-4.3) 09/08/19 04:13 Baso % (Auto) 0.8 % (0.0-1.8) 09/08/19 04:13 Lymph # 1.5 K/mm3 (1.2-5.4) 09/08/19 04:13 [place] # 1.4 K/mm3 (0.0-0.8) H 09/08/19 04:13 Eos # 0.1 K/mm3 (0.0-0.4) 09/08/19 04:13 Baso # 0.1 K/mm3 (0.0-0.1) 09/08/19 04:13 Seg Neutrophils % 75.6 % (40.0-70.0) H 09/08/19 04:13 Seg Neutrophils # 9.8 K/mm3 (1.8-7.7) H 09/08/19 04:13 Sodium 135 mmol/L (137-145) L 09/08/19 04:13 Potassium 3.5 mmol/L (3.6-5.0) L 09/08/19 04:13 Chloride 95.4 mmol/L (98-107) L 09/08/19 04:13 Carbon Dioxide 25 mmol/L (22-30) 09/08/19 04:13 Anion Gap 18 mmol/L 09/08/19 04:13 BUN 12 mg/dL (7-17) 09/08/19 04:13 Creatinine 0.6 mg/dL (0.7-1.2) L 09/08/19 04:13 Estimated GFR > 60 ml/min 09/08/19 04:13 BUN/Creatinine Ratio 20 % 09/08/19 04:13 Glucose 205 mg/dL (65-100) H 09/08/19 04:13 POC Glucose 199 (70-105) H 09/08/19 13:04 Lactic Acid 1.20 mmol/L (0.7-2.0) 09/07/19 09:53 Calcium 8.4 mg/dL (8.4-10.2) 09/08/19 04:13 Total Bilirubin < 0.20 mg/dL (0.1-1.2) 09/06/19 23:09 AST 26 units/L (5-40) 09/06/19 23:09 ALT 17 units/L (7-56) 09/06/19 23:09 Alkaline Phosphatase 88 units/L (35-129) 09/06/19 23:09 Total Creatine Kinase 117 units/L (30-135) 09/07/19 07:22 CK-MB (CK-2) 3.9 ng/mL (0.0-4.0) 09/07/19 07:22 CK-MB (CK-2) Rel Index 3.3 (0-4) 09/07/19 07:22 Troponin T 0.146 ng/mL (0.00-0.029) H* D 09/07/19 07:22 Total Protein 6.9 g/dL (6.3-8.2) 09/06/19 23:09 Albumin 3.3 g/dL (3.9-5) L 09/06/19 23:09 Albumin/Globulin Ratio 0.9 % 09/06/19 23:09 Triglycerides 123 mg/dL (2-149) 09/06/19 23:09 Cholesterol 208 mg/dL (50-199) H 09/06/19 23:09 LDL Cholesterol Direct 133 mg/dL (50-130) H 09/06/19 23:09 HDL Cholesterol 53 mg/dL (40-59) 09/06/19 23:09 Cholesterol/HDL Ratio 3.92 % 09/06/19 23:09 Urine Color Straw (Yellow) 09/06/19 23:34 Urine Turbidity Clear (Clear) 09/06/19 23:34 Urine pH 6.0 (5.0-7.0) 09/06/19 23:34 Ur Specific [place] 1.014 (1.003-1.030) 09/06/19 23:34 Urine Protein <15 mg/dl mg/dL (Negative) 09/06/19 23:34 Urine Glucose (UA) >=500 mg/dL (Negative) 09/06/19 23:34 Urine Ketones Neg mg/dL (Negative) 09/06/19 23:34 Urine Blood Neg (Negative) 09/06/19 23:34 Urine Nitrite Neg (Negative) 09/06/19 23:34 Urine Bilirubin Neg (Negative) 09/06/19 23:34 Urine Urobilinogen < 2.0 mg/dL (<2.0) 09/06/19 23:34 Ur Leukocyte Esterase Mod (Negative) 09/06/19 23:34 Urine WBC (Auto) 5.0 /HPF (0.0-6.0) 09/06/19 23:34 Urine RBC (Auto) 3.0 /HPF (0.0-6.0) 09/06/19 23:34 Urine Bacteria (Auto) 1+ /HPF (Negative) 09/06/19 23:34 Urine Yeast (Budding) 1+ /HPF 09/06/19 23:34 Active Medications - Current Medications Current Medications: Generic Name Dose Route Start Last Admin Trade Name Freq PRN Reason Stop Dose Admin Dextrose 50 ml 09/07/19 01:32 D50w (25gm) Syringe IV Q30MIN PRN Hypoglycemia Protocol Enoxaparin Sodium 40 mg 09/07/19 10:00 09/08/19 11:59 Enoxaparin SUB-Q 40 mg QDAY@1000 SOPHIE Administration Sodium Chloride 1,000 mls @ 75 mls/hr 09/07/19 02:00 09/08/19 12:01 Nacl 0.45% 1000 Ml IV 75 mls/hr DIRECT SOPHIE Administration Piperacillin Sod/Tazobactam Sod 4.5 gm in 100 mls @ 200 mls/hr 09/07/19 02:00 09/08/19 11:59 Zosyn/Ns 4.5gm/100ml IV 200 mls/hr Q8H SOPHIE Administration Protocol Ondansetron HCl 4 mg 09/07/19 01:32 Zofran IV Q8H PRN Nausea And Vomiting Sodium Chloride 10 ml 09/07/19 10:00 09/08/19 12:00 Sodium Chloride Flush Syringe 10 Ml IV 10 ml BID SOPHIE Administration Sodium Chloride 10 ml 09/07/19 01:32 Sodium Chloride Flush Syringe 10 Ml IV PRN PRN LINE FLUSH Nutrition/Malnutrition Assess - Dietary Evaluation Nutrition/Malnutrition Findings: Nutrition Notes Start: 09/07/19 10:35 Freq: Status: Active Protocol: Document 09/07/19 10:35 LM (Rec: 09/07/19 10:46 LM [id number]) Nutrition Notes Need for 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 No billy score in chart but pt with bruises around eyes. Pt NPO due to choking on meatball . [employer] consulted. 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 No Is Patient Ambulatory and/or Out of Bed No REE-([place]-confined to bed) 1509.600 Kcal/Kg value to use for calculation 17 Approximate Energy Requirements Using 1318 kcal/Kg Calculation Used for Recommendations Kcal/kg Additional Notes Protein: 64-77g (1-1.2g/kg AdjBW 64kg) Fluid: 1 ml/kcal Nutrition Intervention Change Diet Order: Diet advancement to cardiac/ consistent CHO or per [employer] when medically feasible Goal #1 Diet advancement Anticipated Discharge Needs: unable to determine at this time Follow-Up By: 09/09/19 Additional Comments F/U for diet advancement, [employer] recommedations
--- NOTE | 2019-09-08 14:21 | Progress Note ---
Assessment and Plan 68-year-old female Dementia/resides in a group home Diabetes Hypertension Head trauma/left frontal hematoma Asystolic arrest secondary to choking episode Elevated cardiac enzymes likely secondary to asystolic arrest No evidence of acute cardiac event Echocardiogram pending Subjective Date of service: 09/08/19 Interval history: Continue supportive care patient lying in bed sleeping Objective Vital Signs Temp Pulse Pulse Resp BP Pulse Ox 09/08/19 14:11 61 18 132/38 97 09/08/19 14:01 61 18 132/38 98 09/08/19 13:51 62 19 132/38 99 09/08/19 13:41 60 17 132/38 97 09/08/19 13:31 62 17 132/38 97 09/08/19 13:21 61 16 132/38 96 09/08/19 13:11 63 18 132/38 96 09/08/19 13:01 54 L 17 132/38 96 09/08/19 12:51 63 17 132/38 98 09/08/19 12:41 63 18 132/38 98 09/08/19 12:31 63 14 132/38 100 09/08/19 12:21 63 19 132/38 99 09/08/19 12:11 54 L 18 132/38 99 09/08/19 12:00 62 17 132/38 97 09/08/19 11:51 62 18 151/43 97 09/08/19 11:41 64 20 151/43 97 09/08/19 11:31 63 17 151/43 98 09/08/19 11:21 72 18 151/43 97 09/08/19 11:11 64 9 L 151/43 95 09/08/19 11:01 63 17 151/43 94 09/08/19 10:51 59 L 12 151/43 94 09/08/19 10:41 64 12 151/43 95 09/08/19 10:31 74 14 151/43 09/08/19 10:21 151/43 94 09/08/19 10:11 151/43 96 09/08/19 10:01 91 H 151/43 95 09/08/19 10:00 99 09/08/19 09:51 101 H 151/43 95 09/08/19 09:41 95 H 151/43 93 09/08/19 09:31 95 H 151/43 96 09/08/19 09:21 97 H 22 151/43 94 09/08/19 09:11 99 H 16 151/43 93 09/08/19 09:01 102 H 18 151/43 95 09/08/19 08:51 108 H 26 H 151/43 95 09/08/19 08:41 73 17 151/43 99 09/08/19 08:31 62 19 151/43 98 09/08/19 08:21 60 18 151/43 96 09/08/19 08:11 63 19 151/43 95 09/08/19 08:00 99.6 F 59 L 15 151/43 98 09/08/19 07:51 85 19 141/60 100 09/08/19 07:41 77 20 141/60 99 09/08/19 07:31 60 18 141/60 98 09/08/19 07:21 58 L 20 141/60 97 09/08/19 07:11 58 L 19 141/60 98 09/08/19 07:01 64 21 141/60 100 09/08/19 06:51 64 22 141/60 100 09/08/19 06:41 67 20 141/60 99 09/08/19 06:31 61 19 141/60 97 09/08/19 06:21 60 19 141/60 96 09/08/19 06:11 60 20 141/60 97 09/08/19 06:01 66 20 141/60 98 09/08/19 04:01 97 H 15 141/60 96 09/08/19 04:00 98.6 F 102 H 104 H 20 96 09/08/19 03:51 102 H 17 144/59 95 09/08/19 03:41 88 24 144/59 98 09/08/19 03:31 81 17 144/59 98 09/08/19 03:21 73 23 144/59 95 09/08/19 03:11 85 18 144/59 96 09/08/19 03:01 80 19 144/59 96 09/08/19 02:51 91 H 24 144/59 96 09/08/19 02:41 94 H 11 L 144/59 96 09/08/19 02:31 100 H 14 144/59 96 09/08/19 02:21 96 H 16 144/59 96 09/08/19 02:11 85 14 144/59 95 09/08/19 02:01 93 H 13 144/59 95 09/08/19 01:51 74 13 144/59 97 09/08/19 01:41 86 21 144/59 96 09/08/19 01:31 95 H 21 144/59 95 09/08/19 01:21 94 H 23 192/60 94 09/08/19 01:11 99 H 21 192/60 97 09/08/19 01:01 93 H 14 192/60 97 09/08/19 00:51 86 12 192/60 97 09/08/19 00:41 88 13 179/51 96 09/08/19 00:30 90 20 179/51 94 09/08/19 00:21 87 12 137/40 95 09/08/19 00:11 77 15 158/44 96 09/08/19 00:01 73 20 158/44 96 09/08/19 00:00 99 F 90 97 H 14 95 09/07/19 23:51 62 17 137/40 97 09/07/19 23:41 78 14 137/40 97 09/07/19 23:31 58 L 13 137/40 98 09/07/19 23:21 66 20 158/49 98 09/07/19 23:11 66 17 158/49 98 09/07/19 23:00 82 21 158/49 94 09/07/19 22:51 88 20 155/54 97 09/07/19 22:41 87 18 155/54 95 09/07/19 22:31 93 H 14 155/54 93 09/07/19 22:21 95 H 15 153/65 95 09/07/19 22:11 96 H 12 153/65 94 09/07/19 22:00 98 H 18 153/65 96 09/07/19 21:51 86 14 152/54 96 09/07/19 21:41 65 20 152/54 96 09/07/19 21:30 90 13 152/54 09/07/19 21:21 90 12 160/52 09/07/19 21:11 99 H 21 160/52 96 09/07/19 21:00 83 19 160/52 96 09/07/19 20:51 96 H 15 159/58 09/07/19 20:41 96 H 20 159/58 09/07/19 20:31 87 20 159/58 93 09/07/19 20:21 74 20 157/58 95 09/07/19 20:11 82 11 L 159/92 97 09/07/19 20:01 71 13 159/92 94 09/07/19 20:00 98.8 F 93 H 71 16 96 09/07/19 19:51 93 H 18 157/58 97 09/07/19 19:41 77 13 157/58 96 09/07/19 19:31 75 11 L 157/58 90 09/07/19 19:21 69 15 121/40 97 09/07/19 19:11 82 12 121/40 96 09/07/19 19:01 75 14 121/40 96 09/07/19 18:51 70 11 L 87/36 97 09/07/19 18:41 70 15 87/36 98 09/07/19 18:31 57 L 6 L 87/36 97 09/07/19 18:21 61 5 L 103/31 100 09/07/19 18:11 57 L 15 103/31 97 09/07/19 18:01 55 L 16 103/31 94 09/07/19 17:51 57 L 16 127/32 97 09/07/19 17:41 56 L 17 127/32 97 09/07/19 17:30 67 17 127/32 94 09/07/19 17:21 74 14 160/66 97 09/07/19 17:11 82 19 160/66 09/07/19 17:00 78 20 148/46 09/07/19 16:51 96 H 11 L 156/54 09/07/19 16:41 100 H 22 156/54 84 09/07/19 16:30 99 H 16 160/66 95 09/07/19 16:21 101 H 20 150/48 97 09/07/19 16:10 102 H 22 156/54 95 09/07/19 16:00 92 H 95 H 19 156/54 95 09/07/19 15:51 95 H 19 155/60 95 09/07/19 15:41 87 13 155/60 96 09/07/19 15:31 93 H 12 150/48 94 09/07/19 15:29 98 09/07/19 15:21 85 17 155/60 97 09/07/19 15:11 85 14 155/60 97 09/07/19 15:00 155/60 09/07/19 14:41 75 13 125/42 97 09/07/19 14:31 70 12 125/42 96 - Physical Examination HEENT: Positive: Other (Bilateral black eyes and left frontal ecchymoses/hematoma) Neck: Positive: neck supple, trachea midline Cardiac: Positive: Reg Rate and Rhythm Lungs: Positive: clear to auscultation, Normal Breath Sounds Neuro: Positive: Other (Dementia) Abdomen: Positive: Soft, Active Bowel Sounds Skin: Negative: Rash Extremities: Present: warm. Absent: edema - Labs and Meds CBC 09/08/19 Range/Units 04:13 WBC 13.0 H (4.5-11.0) K/mm3 RBC 3.86 (3.65-5.03) M/mm3 Hgb 10.9 (10.1-14.3) gm/dl Hct 33.3 (30.3-42.9) % Plt Count 662 H (140-440) K/mm3 Lymph # 1.5 (1.2-5.4) K/mm3 Twiggs # 1.4 H (0.0-0.8) K/mm3 Eos # 0.1 (0.0-0.4) K/mm3 Baso # 0.1 (0.0-0.1) K/mm3 Comprehensive Metabolic Panel 09/08/19 Range/Units 04:13 Sodium 135 L (137-145) mmol/L Potassium 3.5 L (3.6-5.0) mmol/L Chloride 95.4 L (98-107) mmol/L Carbon Dioxide 25 (22-30) mmol/L BUN 12 (7-17) mg/dL Creatinine 0.6 L (0.7-1.2) mg/dL Glucose 205 H (65-100) mg/dL Calcium 8.4 (8.4-10.2) mg/dL - Imaging and Cardiology EKG: image reviewed Echo: pending
[2019-09-09] MEDS: PIPERACIL/TAZOBACTA 4.5/NS 100 4.5 GM/100 ML VIAL IV SCH (02:13)
[2019-09-09] MEDS: SODIUM CHLORIDE 0.45% 1000 ML 1,000 ML IV SCH (04:50)
[2019-09-09 06:03] LABS: Hematocrit 33.2 % (30.3-42.9); Mean Corpuscular HGB Conc 33 % (30-34); Mean Corpuscular Volume 87 fl (79-97); Platelet Count 642 K/mm3 (140-440); Red Blood Count 3.84 M/mm3 (3.65-5.03); Red Cell Distribution Width 15.5 % (13.2-15.2)
[2019-09-09 06:31] LABS: BUN/Creatinine Ratio 18; Blood Urea Nitrogen 11 mg/dL (7-17); Calcium 8.4 mg/dL (8.4-10.2); Hemolysis Index 0
[2019-09-09] MEDS ORDERED: POTASSIUM CHLORIDE 20 MEQ PACKET PO SCH (08:30)
[2019-09-09] MEDS: ENOXAPARIN 40 MG/0.4 ML INJ SUB-Q SCH (09:35)
--- NOTE | 2019-09-09 10:57 | XRay Report ---
CHEST 1 VIEW INDICATION: choked on food, poss pneumonia. COMPARISON: 09/06/2019 FINDINGS: Support devices: None. Heart: Within normal limits. Lungs/Pleura: No acute air space or interstitial disease. Additional findings: None. IMPRESSION: No acute findings. Signer Name: Terry Mujica Jr, MD Signed: 09/09/2019 10:52 AM Workstation Name: [id number]
--- NOTE | 2019-09-09 11:37 | Progress Note ---
Assessment and Plan 68-year-old female Dementia/resides in a halfway Diabetes Hypertension Head trauma/left frontal hematoma Asystolic arrest secondary to choking episode Elevated cardiac enzymes likely secondary to asystolic arrest No evidence of acute cardiac event tte reviewed - EF 60-65%, mod LVH, grade 2 diastolic dysfunction. Plan for lexiscan MPI stress test in AM. NPO after MN. The patient has been seen in conjunction with Dr. Angel Joshi who agrees with the assessment and plan of care. Subjective Date of service: 09/09/19 Principal diagnosis: cardiac arrest Interval history: pt resting in bed, no current cardiac complaints, wants to get OOB. tele reviewed - in SR HR 80s with SB HR 40s noted overnight. Objective Last Vital Signs Temp 98.4 F 09/09/19 08:23 Pulse 67 09/09/19 08:23 Resp 18 09/09/19 08:23 BP 153/31 09/09/19 08:23 Pulse Ox 97 09/09/19 09:29 - Physical Examination General: No Apparent Distress HEENT: Positive: Other (Bilateral black eyes and left frontal ecchymoses/hematoma) Neck: Positive: neck supple, trachea midline Cardiac: Positive: Reg Rate and Rhythm, S1/S2 Lungs: Positive: Decreased Breath Sounds Neuro: Positive: Other (Dementia) Abdomen: Positive: Soft, Active Bowel Sounds Skin: Negative: Rash Extremities: Present: warm. Absent: edema - Labs and Meds CBC 09/09/19 Range/Units 05:27 WBC 10.1 (4.5-11.0) K/mm3 RBC 3.84 (3.65-5.03) M/mm3 Hgb 11.0 (10.1-14.3) gm/dl Hct 33.2 (30.3-42.9) % Plt Count 642 H (140-440) K/mm3 Comprehensive Metabolic Panel 09/09/19 Range/Units 05:27 Sodium 140 (137-145) mmol/L Potassium 3.4 L (3.6-5.0) mmol/L Chloride 100.0 (98-107) mmol/L Carbon Dioxide 24 (22-30) mmol/L BUN 11 (7-17) mg/dL Creatinine 0.6 L (0.7-1.2) mg/dL Glucose 220 H (65-100) mg/dL Calcium 8.4 (8.4-10.2) mg/dL - Imaging and Cardiology EKG: image reviewed Echo: pending
--- NOTE | 2019-09-09 14:02 | Progress Note ---
Assessment and Plan Assessment and plan: Status post cardiac arrest secondary to choking event consulted cardiology, following I discussed with Cardiology For stress test in am Choked on food Patient choked on food, meatball, had cardiac arrest, She has been seen by Speech Pathologist, now put on mechanical soft diet Diabetes mellitus type 2 Check fingersticks, hold sliding scale for now Aspiration pneumonia ruled out SIRS without organ dysfunction Dementia Hypertension Monitor DVT prophylaxis Cont Lovenox For stress test tomorrow.to dc to SNF if stress neg. History Interval history: Patient choked on food, meatball, had cardiac arrest, intubated. She later self-extubated. now awake,alert. Hospitalist Physical - Physical exam Narrative exam: GEN: Not in acute distress, lying in bed, obese HEENT: Hematoma left frontal area, Neck: supple, No JVD Lungs: Clear to auscultation, heart;S1 and S2 reg, no murmurs, rubs or gallop Abd:soft, non tender, non distended, normal bowel sounds Ext: No edema, no clubbing, no cyanosis Neuro: Awake,alert, oriented to person, not to place or time, - Constitutional Vitals: Temp Pulse Resp BP Pulse Ox 97.9 F 89 18 174/89 96 09/09/19 12:55 09/09/19 12:55 09/09/19 12:55 09/09/19 12:55 09/09/19 12:55 General appearance: Present: no acute distress Results - Labs CBC & Chem 7: 09/09/19 05:27 09/09/19 05:27 Labs: Laboratory Last Values WBC 10.1 K/mm3 (4.5-11.0) 09/09/19 05:27 RBC 3.84 M/mm3 (3.65-5.03) 09/09/19 05:27 Hgb 11.0 gm/dl (10.1-14.3) 09/09/19 05:27 Hct 33.2 % (30.3-42.9) 09/09/19 05:27 MCV 87 fl (79-97) 09/09/19 05:27 MCH 29 pg (28-32) 09/09/19 05:27 MCHC 33 % (30-34) 09/09/19 05:27 RDW 15.5 % (13.2-15.2) H 09/09/19 05:27 Plt Count 642 K/mm3 (140-440) H 09/09/19 05:27 Lymph % (Auto) 11.6 % (13.4-35.0) L 09/08/19 04:13 [place] % (Auto) 10.9 % (0.0-7.3) H 09/08/19 04:13 Eos % (Auto) 1.1 % (0.0-4.3) 09/08/19 04:13 Baso % (Auto) 0.8 % (0.0-1.8) 09/08/19 04:13 Lymph # 1.5 K/mm3 (1.2-5.4) 09/08/19 04:13 Dillon # 1.4 K/mm3 (0.0-0.8) H 09/08/19 04:13 Eos # 0.1 K/mm3 (0.0-0.4) 09/08/19 04:13 Baso # 0.1 K/mm3 (0.0-0.1) 09/08/19 04:13 Seg Neutrophils % 75.6 % (40.0-70.0) H 09/08/19 04:13 Seg Neutrophils # 9.8 K/mm3 (1.8-7.7) H 09/08/19 04:13 Sodium 140 mmol/L (137-145) 09/09/19 05:27 Potassium 3.4 mmol/L (3.6-5.0) L 09/09/19 05:27 Chloride 100.0 mmol/L (98-107) 09/09/19 05:27 Carbon Dioxide 24 mmol/L (22-30) 09/09/19 05:27 Anion Gap 19 mmol/L 09/09/19 05:27 BUN 11 mg/dL (7-17) 09/09/19 05:27 Creatinine 0.6 mg/dL (0.7-1.2) L 09/09/19 05:27 Estimated GFR > 60 ml/min 09/09/19 05:27 BUN/Creatinine Ratio 18 % 09/09/19 05:27 Glucose 220 mg/dL (65-100) H 09/09/19 05:27 POC Glucose 203 (70-105) H 09/09/19 06:17 Lactic Acid 1.20 mmol/L (0.7-2.0) 09/07/19 09:53 Calcium 8.4 mg/dL (8.4-10.2) 09/09/19 05:27 Total Bilirubin < 0.20 mg/dL (0.1-1.2) 09/06/19 23:09 AST 26 units/L (5-40) 09/06/19 23:09 ALT 17 units/L (7-56) 09/06/19 23:09 Alkaline Phosphatase 88 units/L (35-129) 09/06/19 23:09 Total Creatine Kinase 117 units/L (30-135) 09/07/19 07:22 CK-MB (CK-2) 3.9 ng/mL (0.0-4.0) 09/07/19 07:22 CK-MB (CK-2) Rel Index 3.3 (0-4) 09/07/19 07:22 Troponin T 0.146 ng/mL (0.00-0.029) H* D 09/07/19 07:22 Total Protein 6.9 g/dL (6.3-8.2) 09/06/19 23:09 Albumin 3.3 g/dL (3.9-5) L 09/06/19 23:09 Albumin/Globulin Ratio 0.9 % 09/06/19 23:09 Triglycerides 123 mg/dL (2-149) 09/06/19 23:09 Cholesterol 208 mg/dL (50-199) H 09/06/19 23:09 LDL Cholesterol Direct 133 mg/dL (50-130) H 09/06/19 23:09 HDL Cholesterol 53 mg/dL (40-59) 09/06/19 23:09 Cholesterol/HDL Ratio 3.92 % 09/06/19 23:09 Urine Color Straw (Yellow) 09/06/19 23:34 Urine Turbidity Clear (Clear) 09/06/19 23:34 Urine pH 6.0 (5.0-7.0) 09/06/19 23:34 Ur Specific [place] 1.014 (1.003-1.030) 09/06/19 23:34 Urine Protein <15 mg/dl mg/dL (Negative) 09/06/19 23:34 Urine Glucose (UA) >=500 mg/dL (Negative) 09/06/19 23:34 Urine Ketones Neg mg/dL (Negative) 09/06/19 23:34 Urine Blood Neg (Negative) 09/06/19 23:34 Urine Nitrite Neg (Negative) 09/06/19 23:34 Urine Bilirubin Neg (Negative) 09/06/19 23:34 Urine Urobilinogen < 2.0 mg/dL (<2.0) 09/06/19 23:34 Ur Leukocyte Esterase Mod (Negative) 09/06/19 23:34 Urine WBC (Auto) 5.0 /HPF (0.0-6.0) 09/06/19 23:34 Urine RBC (Auto) 3.0 /HPF (0.0-6.0) 09/06/19 23:34 Urine Bacteria (Auto) 1+ /HPF (Negative) 09/06/19 23:34 Urine Yeast (Budding) 1+ /HPF 09/06/19 23:34 Active Medications - Current Medications Current Medications: Generic Name Dose Route Start Last Admin Trade Name Freq PRN Reason Stop Dose Admin Dextrose 50 ml 09/07/19 01:32 D50w (25gm) Syringe IV Q30MIN PRN Hypoglycemia Protocol Enoxaparin Sodium 40 mg 09/07/19 10:00 09/09/19 09:35 Enoxaparin SUB-Q 40 mg QDAY@1000 SOPHIE Administration Sodium Chloride 1,000 mls @ 75 mls/hr 09/07/19 02:00 09/09/19 04:50 Nacl 0.45% 1000 Ml IV 75 mls/hr DIRECT SOPHIE Administration Ondansetron HCl 4 mg 09/07/19 01:32 Zofran IV Q8H PRN Nausea And Vomiting Sodium Chloride 10 ml 09/07/19 10:00 09/09/19 10:07 Sodium Chloride Flush Syringe 10 Ml IV 10 ml BID SOPHIE Administration Sodium Chloride 10 ml 09/07/19 01:32 Sodium Chloride Flush Syringe 10 Ml IV PRN PRN LINE FLUSH Nutrition/Malnutrition Assess - Dietary Evaluation Nutrition/Malnutrition Findings: Nutrition Notes Start: 09/07/19 10:35 Freq: Status: Active Protocol: Document 09/07/19 10:35 LM (Rec: 09/07/19 10:46 LM [id number]) Nutrition Notes Need for Assessment generated from: reading instructor Current Diagnosis Diabetes,Hypertension Other Pertinent Diagnosis Dementia, s/p fall, s/p choking on food, DVT Current Diet NPO Labs/Tests POC glu 284 Pertinent Medications NaCl at 75 ml/hr Height 5 ft 2 in Weight 77.5 kg [place] Body Weight (kg) 50.00 BMI 31.2 Weight Status Obese Subjective/Other Information RN screen for skin risk. No billy score in chart but pt with bruises around eyes. Pt NPO due to choking on meatball . RO[employer] CROSSING GUARD consulted. 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 No Is Patient Ambulatory and/or Out of Bed No REE-([place]-confined to bed) 1509.600 Kcal/Kg value to use for calculation 17 Approximate Energy Requirements Using 1318 kcal/Kg Calculation Used for Recommendations Kcal/kg Additional Notes Protein: 64-77g (1-1.2g/kg AdjBW 64kg) Fluid: 1 ml/kcal Nutrition Intervention Change Diet Order: Diet advancement to cardiac/ consistent CHO or per RO[employer] CR[employer]ARD when medically feasible Goal #1 Diet advancement Anticipated Discharge Needs: unable to determine at this time Follow-Up By: 09/09/19 Additional Comments F/U for diet advancement, RO[employer]ARD recommedations
[2019-09-10] MEDS ORDERED: REGADENOSON 0.4 MG/5 ML INJ IV ONE ×2 (07:21→07:22)
[2019-09-10] MEDS: ENOXAPARIN 40 MG/0.4 ML INJ SUB-Q SCH (10:00)
--- NOTE | 2019-09-10 10:25 | Discharge Summary ---
Providers - Providers Date of Admission: 09/07/19 02:04 Date of discharge: 09/10/19 Attending physician: RAQUEL AGUIRRE 09/07/19 01:32 Consult to Physician [CONS] Routine Comment: Consulting Provider: CHRISTEL MARCIAL Physician Instructions: Reason For Exam: cardiac arrest 09/07/19 01:37 Speech Therapy Evaluation and Treat [CONS] Routine Reason For Exam: choked on food Hospitalization Reason for admission: Status post cardiac arrest secondary to choking event Condition: Critical Hospital course: 68-year-old female who [facility] in a prison and has a past medical history of dementia, diabetes, and hypertension presented to [facility] emergency department by EMS after apparently choking on a meat ball and subsequently losing consciousness. The prison staff and EMS attempted Heimlich maneuver which was unsuccessful. The patient subsequently went into asystolic arrest and at that time intubation was attempted. The patient subsequently vomited and self extubated. In the emergency department the patient was noted to have elevated cardiac troponins and an elevated white count. The patient later self extubated awake and responded to questions. The patient was seen by cardiology in consultation and felt to have elevated cardiac enzymes likely secondary to asystolic arrest. There was no evidence of acute cardiac event. Echocardiogram revealed EF 60 to 65% with mod LVH, grade 2 diastolic dysfunction. Patient was scheduled for Lexiscan MPI stress test but refused. With regards to her choking event, patient was evaluated by speech pathology and placed on mechanical soft diet. Patient had aspiration pneumonia ruled out. Patient is otherwise stable and will be discharged back to residential facility. Dedicated discharge time 32 minutes Disposition: [id number]/[place]-03 SNF [facility] Time spent for discharge: 32 - Discharge Diagnoses (1) AMS (altered mental status) Status: Acute Qualifiers: Altered mental status type: unspecified Qualified Code(s): R41.82 - Altered mental status, unspecified (2) Cardiac arrest Status: Acute (3) Choking Status: Acute Qualifiers: Encounter type: initial encounter Qualified Code(s): T17.308A - Unspecified foreign body in larynx causing other injury, initial encounter (4) Elevated troponin Status: Acute Core Measure Documentation - Palliative Care Palliative Care/ Comfort Measures: Not Applicable - Core Measures Any of the following diagnoses?: none Exam - Constitutional Vitals: Temp Pulse Resp BP Pulse Ox 98.2 F 70 20 151/43 93 03/03/20 07:35 09/10/19 07:35 09/10/19 07:35 09/10/19 07:35 09/10/19 07:35 General appearance: Present: no acute distress, well-nourished - EENT Eyes: Present: PERRL ENT: hearing intact, clear oral mucosa - Neck Neck: Present: supple, normal ROM - Respiratory Respiratory effort: normal Respiratory: bilateral: CTA - Cardiovascular Heart Sounds: Present: S1 & S2. Absent: rub, click - Extremities Extremities: pulses symmetrical, No edema Peripheral Pulses: within normal limits - Abdominal General gastrointestinal: Present: soft, non-tender, non-distended, normal bowel sounds Female genitourinary: Present: normal - Integumentary Integumentary: Present: clear, warm, dry - Musculoskeletal Musculoskeletal: gait normal, strength equal bilaterally - Psychiatric Psychiatric: appropriate mood/affect, intact judgment & insight - Neurologic Neurologic: CNII-XII intact, moves all extremities Plan Activity: advance as tolerated Weight Bearing Status: Weight Bear as Tolerated Diet: other (Soft mechanical) Follow up with: ROJELIO PONCE MD [Referring] - 3-5 Days CHRISTEL MARCIAL MD [Staff Physician] - 7 Days
--- NOTE | 2019-09-10 12:35 | Progress Note ---
Assessment and Plan 68-year-old female Dementia/resides in a fpc Diabetes Hypertension Head trauma/left frontal hematoma Asystolic arrest secondary to choking episode Elevated cardiac enzymes likely secondary to asystolic arrest No evidence of acute cardiac event tte reviewed - EF 60-65%, mod LVH, grade 2 diastolic dysfunction. pt brought down for stress test this AM and ultimately refused stress test. refusing any additional cardiac w/u at this time. Currently stable cardiac status. Pt may discharge from cardiology standpoint. Can readdress ischemic evaluation as OP if/when pt is agreeable. Recommend follow up in our office with Dr. Ricardo within 1-2 weeks of discharge ([phone]). The patient has been seen in conjunction with Dr. Angel Joshi who agrees with the assessment and plan of care. Subjective Date of service: 09/10/19 Principal diagnosis: cardiac arrest Interval history: pt resting in bed, no current cardiac complaints. tele reviewed - in SR HR 70s. Objective Last Vital Signs Temp 98.2 F 09/10/19 07:35 Pulse 70 09/10/19 07:35 Resp 20 09/10/19 07:35 BP 151/43 09/10/19 07:35 Pulse Ox 93 09/10/19 07:35 - Physical Examination General: No Apparent Distress HEENT: Positive: Other (Bilateral black eyes and left frontal ecchymoses/hematoma) Neck: Positive: neck supple, trachea midline Cardiac: Positive: Reg Rate and Rhythm, S1/S2 Lungs: Positive: Decreased Breath Sounds Neuro: Positive: Other (Dementia) Abdomen: Positive: Soft, Active Bowel Sounds Skin: Negative: Rash Extremities: Present: warm. Absent: edema - Imaging and Cardiology EKG: image reviewed Echo: pending
[2019-09-10 13:08] VITALS: BP 127/41
== END 2019-09-10 14:12 | DRG 205 ==
LOC: ED 21:08 → EDBD 09-07 02:04 → MERGE 09-07 02:04 → IMCU 09-07 02:04 → 4A 09-08 15:41
PROVIDERS: ADMIT Internal Medicine; ATTEND Hospitalist
PROC: 5A12012 Performance of Cardiac Output, Single, Manual (ICD-10-PCS; principal; 2019-09-07)
DX: T17.828A Food in other parts of respiratory tract causing other injury, initial encounter (principal); I46.9 Cardiac arrest, cause unspecified; R65.10 Systemic inflammatory response syndrome (SIRS) of non-infectious origin without acute organ dysfunction; R79.89 Other specified abnormal findings of blood chemistry; F03.90 Unspecified dementia, unspecified severity, without behavioral disturbance, psychotic disturbance, mood disturbance, and anxiety; E11.9 Type 2 diabetes mellitus without complications; I10 Essential (primary) hypertension; S00.83XA Contusion of other part of head, initial encounter; Y93.89 Activity, other specified; Y92.89 Other specified places as the place of occurrence of the external cause; Y99.8 Other external cause status; Z79.82 Long term (current) use of aspirin; Z79.899 Other long term (current) drug therapy
CPT/HCPCS: 36415; 70450; 71045; 80048; 80053; 80061; 81001; 82140; 82550; 82553; 82962; 84484; 85025; 85027; 87040; 87086; 93005; 93010; 93306; 94760; 96365; G0378; J0692; J1630; J1650; J2543; J2785; J7030

== ENCOUNTER 2019-09-14 08:05 | Emergency (ER) | payer MEDICARE ==
[2019-09-14] MEDS ORDERED: SODIUM CHLORIDE 0.9% 1000 ML 1,000 ML IV ONE (09:51)
[2019-09-14 11:07] LABS: Calcium 8.8 mg/dL (8.4-10.2)
[2019-09-14 11:10] LABS: Mean Corpuscular HGB Conc 31 % (30-34); Mean Corpuscular Volume 90 fl (79-97); Platelet Count 594 K/mm3 (140-440); Red Blood Count 4.36 M/mm3 (3.65-5.03)
--- NOTE | 2019-09-14 11:20 | XRay Report ---
LUMBAR SPINE 3 VIEWS INDICATION / CLINICAL INFORMATION: MAIN: fall THIS AM. COMPARISON: None available. FINDINGS: 8 mm of anterolisthesis L4 on L5. I cannot determine if this is chronic or new. No appreciable fracture. Signer Name: Salvador Simental MD Signed: 09/14/2019 11:16 AM Workstation Name: [id number]
--- NOTE | 2019-09-14 11:23 | Emergency Department Report ---
ED General Adult HPI - General Chief complaint: Altered Mental Status Stated complaint: AMS/OBED Time Seen by Provider: 09/14/19 09:43 Source: EMS Mode of arrival: Stretcher Limitations: Physical Limitation - History of Present Illness Initial comments: Patient is a 68-year-old female who was sent in from her custodial because they felt as though her dementia had worsened. Patient initially reported with no complaints herself except for the her lower back hurt. Patient has a recent fall with closed head injury. alf did not give any additional information as far as why they believe she was altered. When we spoke to the custodial they stated that her baseline is that she sleeps a lot and she mumbles from time to time but is not usually lucid and conversational. Patient recently also was treated for UTI on 08/14/2019 and was on Bactrim for approximately 7 days. Severity scale (0 -10): 0 - Related Data Home Medications Medication Instructions Recorded Confirmed Last Taken Aspirin [Aspirin BABY CHEW TAB] 81 mg PO QDAY 08/15/19 09/07/19 Unknown Cholecalciferol Vit D3 [Vitamin D3 1,000 units PO QDAY 08/15/19 09/07/19 Unknown 1,000 UNIT TAB] Divalproex Dr [Depakote Dr] 500 mg PO BID 08/15/19 09/07/19 Unknown Ferrous Sulfate [Iron 325 MG] 325 mg PO QDAY 08/15/19 09/07/19 Unknown Hydroxyzine HCl [hydrOXYzine] 25 mg PO Q6H 08/15/19 09/07/19 Unknown Insulin Glargine,Hum.rec.anlog 100 unit SQ QDAY 08/15/19 09/07/19 Unknown [Basaglar Zaydaikpen U-100] Memantine 10 mg PO HS 08/15/19 09/07/19 Unknown clonazePAM [KlonoPIN] 0.5 mg PO BID PRN 08/15/19 09/07/19 Unknown donepeziL [Aricept] 10 mg PO QDAY 08/15/19 09/07/19 Unknown levoFLOXacin [Levaquin TAB] 500 mg PO BID 08/15/19 09/07/19 Unknown risperiDONE [RisperDAL] 1 mg PO HS 08/15/19 09/07/19 Unknown traMADoL [Ultram 50 MG tab] 50 mg PO Q6HR PRN 08/15/19 09/07/19 Unknown traZODone [Desyrel] 50 mg PO QHS 08/15/19 09/07/19 Unknown Aspirin [Aspirin BABY CHEW TAB] 81 mg PO QDAY 09/05/19 09/05/19 Unknown Jacquie Silva U-100 17 units SUB-Q QAC 09/05/19 09/05/19 Unknown Divalproex [Beth Alcocer] 250 mg PO QDAY 09/05/19 09/05/19 Unknown Ferrous Sulfate [Feosol 325 MG tab] 1 tab PO QDAY 09/05/19 09/05/19 Unknown Hydroxyzine HCl [hydrOXYzine] 25 mg PO Q6H PRN 09/05/19 09/05/19 Unknown Memantine 1 tab PO QHS 09/05/19 09/05/19 Unknown Memantine 5 mg PO QAC 09/05/19 09/05/19 Unknown Vitamin D3 1,000 UNIT TAB 1 tab PO QDAY 09/05/19 09/05/19 Unknown clonazePAM 0.5 mg PO BID 09/05/19 09/05/19 Unknown donepeziL [Aricept] 10 mg PO QHS 09/05/19 09/05/19 Unknown risperiDONE [RisperDAL] 1 tab PO QHS 09/05/19 09/05/19 Unknown traMADoL [Ultram 50 MG tab] 50 mg PO Q6HR PRN 09/05/19 09/05/19 Unknown traZODone [Desyrel] 50 mg PO QHS PRN 09/05/19 09/05/19 Unknown Previous Rx's Medication Instructions Recorded Last Taken Type Acetaminophen [Acetaminophen TAB] 1 tab PO Q4H PRN #15 tablet 09/06/19 Unknown Rx amLODIPine 5 mg PO QDAY #30 tablet 09/06/19 Unknown Rx levoFLOXacin [Levaquin TAB] 500 mg PO QDAY #10 tablet 09/14/19 Unknown Rx Allergies Allergy/AdvReac Type Severity Reaction Status Date / Time codeine Allergy Unknown Verified 09/11/19 08:21 pravastatin Allergy Unknown Verified 09/11/19 08:21 ED Review of Systems ROS: Stated complaint: AMS/OBED Other details as noted in HPI Comment: All other systems reviewed and negative ED Past Medical Hx - Past Medical History Previous Medical History?: Yes Hx Hypertension: Yes Hx Diabetes: Yes Hx Psychiatric Treatment: Yes Hx Dementia: Yes - Social History Smoking Status: Unknown if ever smoked - Medications Home Medications: Home Medications Medication Instructions Recorded Confirmed Last Taken Type Aspirin [Aspirin BABY CHEW TAB] 81 mg PO QDAY 08/15/19 09/07/19 Unknown History Cholecalciferol Vit D3 [Vitamin D3 1,000 units PO QDAY 08/15/19 09/07/19 Unknown History 1,000 UNIT TAB] Caroleeprobailey Alcocer [Beth Alcocer] 500 mg PO BID 08/15/19 09/07/19 Unknown History Ferrous Sulfate [Iron 325 MG] 325 mg PO QDAY 08/15/19 09/07/19 Unknown History Hydroxyzine HCl [hydrOXYzine] 25 mg PO Q6H 08/15/19 09/07/19 Unknown History Insulin Glargine,Hum.rec.anlog 100 unit SQ QDAY 08/15/19 09/07/19 Unknown History [Jacquie Silva U-100] Memantine 10 mg PO HS 08/15/19 09/07/19 Unknown History clonazePAM [KlonoPIN] 0.5 mg PO BID PRN 08/15/19 09/07/19 Unknown History donepeziL [Aricept] 10 mg PO QDAY 08/15/19 09/07/19 Unknown History levoFLOXacin [Levaquin TAB] 500 mg PO BID 08/15/19 09/07/19 Unknown History risperiDONE [RisperDAL] 1 mg PO HS 08/15/19 09/07/19 Unknown History traMADoL [Ultram 50 MG tab] 50 mg PO Q6HR PRN 08/15/19 09/07/19 Unknown History traZODone [Desyrel] 50 mg PO QHS 08/15/19 09/07/19 Unknown History Aspirin [Aspirin BABY CHEW TAB] 81 mg PO QDAY 09/05/19 09/05/19 Unknown History Jacquie Silva U-100 17 units SUB-Q QA 09/05/19 09/05/19 Unknown History Marcelo Alcocer [Beth Alcocer] 250 mg PO QDAY 09/05/19 09/05/19 Unknown History Ferrous Sulfate [Feosol 325 MG tab] 1 tab PO QDAY 09/05/19 09/05/19 Unknown History Hydroxyzine HCl [hydrOXYzine] 25 mg PO Q6H PRN 09/05/19 09/05/19 Unknown History Memantine 1 tab PO QHS 09/05/19 09/05/19 Unknown History Memantine 5 mg PO QAC 09/05/19 09/05/19 Unknown History Vitamin D3 1,000 UNIT TAB 1 tab PO QDAY 09/05/19 09/05/19 Unknown History clonazePAM 0.5 mg PO BID 09/05/19 09/05/19 Unknown History donepeziL [Aricept] 10 mg PO QHS 09/05/19 09/05/19 Unknown History risperiDONE [RisperDAL] 1 tab PO QHS 09/05/19 09/05/19 Unknown History traMADoL [Ultram 50 MG tab] 50 mg PO Q6HR PRN 09/05/19 09/05/19 Unknown History traZODone [Desyrel] 50 mg PO QHS PRN 09/05/19 09/05/19 Unknown History Acetaminophen [Acetaminophen TAB] 1 tab PO Q4H PRN #15 tablet 09/06/19 Unknown Rx amLODIPine 5 mg PO QDAY #30 tablet 09/06/19 Unknown Rx levoFLOXacin [Levaquin TAB] 500 mg PO QDAY #10 tablet 09/14/19 Unknown Rx ED Physical Exam - General Limitations: Physical Limitation General appearance: alert, in no apparent distress - Head Head exam: Present: normocephalic. Absent: atraumatic (Patient with a area of swelling above the left eye with some facial bruising consistent with a healing injury.) - Eye Eye exam: Present: normal appearance - ENT ENT exam: Present: mucous membranes moist - Neck Neck exam: Present: normal inspection - Respiratory Respiratory exam: Present: normal lung sounds bilaterally. Absent: respiratory distress, wheezes, rales, rhonchi - Cardiovascular Cardiovascular Exam: Present: regular rate, normal rhythm. Absent: systolic murmur, diastolic murmur, rubs, gallop - GI/Abdominal GI/Abdominal exam: Present: soft, normal bowel sounds. Absent: distended, tenderness, guarding, rebound - Extremities Exam Extremities exam: Present: normal inspection - Back Exam Back exam: Present: normal inspection - Neurological Exam Neurological exam: Present: alert, oriented X3 - Psychiatric Psychiatric exam: Present: normal affect, normal mood - Skin Skin exam: Present: warm, dry, intact, normal color. Absent: rash ED Course Vital Signs 09/14/19 09/14/19 09/14/19 08:18 08:27 08:30 Temperature 97.5 F L Pulse Rate 89 88 86 Respiratory 15 24 20 Rate Blood Pressure 109/43 109/51 Blood Pressure [Left] O2 Sat by Pulse 90 100 100 Oximetry 09/14/19 09/14/19 09/14/19 08:34 08:35 08:45 Temperature 97.5 F L Pulse Rate 88 95 H Respiratory 24 15 Rate Blood Pressure 118/55 Blood Pressure 109/43 [Left] O2 Sat by Pulse 100 100 100 Oximetry 09/14/19 09/14/19 09/14/19 09:00 09:15 09:31 Temperature Pulse Rate 99 H 100 H 100 H Respiratory 19 21 17 Rate Blood Pressure 116/49 109/43 109/43 Blood Pressure [Left] O2 Sat by Pulse 98 100 100 Oximetry 09/14/19 09/14/19 09/14/19 09:45 10:01 10:15 Temperature Pulse Rate 96 H 96 H 74 Respiratory 14 19 20 Rate Blood Pressure 116/49 116/49 116/49 Blood Pressure [Left] O2 Sat by Pulse 91 100 Oximetry 09/14/19 09/14/19 09/14/19 10:31 10:45 11:00 Temperature Pulse Rate 90 90 100 H Respiratory 17 15 19 Rate Blood Pressure 116/49 114/55 112/64 Blood Pressure [Left] O2 Sat by Pulse 100 100 100 Oximetry 09/14/19 09/14/19 09/14/19 11:15 11:30 11:45 Temperature Pulse Rate 99 H 107 H 109 H Respiratory 16 21 23 Rate Blood Pressure 112/64 137/61 107/78 Blood Pressure [Left] O2 Sat by Pulse 100 98 Oximetry 09/14/19 09/14/19 09/14/19 12:00 12:15 12:30 Temperature Pulse Rate 103 H 101 H 97 H Respiratory 20 23 14 Rate Blood Pressure 124/61 119/55 112/57 Blood Pressure [Left] O2 Sat by Pulse 100 100 100 Oximetry 09/14/19 12:45 Temperature Pulse Rate Respiratory Rate Blood Pressure 124/61 Blood Pressure [Left] O2 Sat by Pulse 100 Oximetry ED Medical Decision Making - Lab Data Result diagrams: 09/14/19 10:12 09/14/19 10:12 Lab Results 09/14/19 09/14/19 09/14/19 Range/Units 08:35 10:12 10:12 WBC 16.4 H (4.5-11.0) K/mm3 RBC 4.36 (3.65-5.03) M/mm3 Hgb 12.0 (10.1-14.3) gm/dl Hct 39.0 (30.3-42.9) % MCV 90 (79-97) fl MCH 28 (28-32) pg MCHC 31 (30-34) % RDW 16.0 H (13.2-15.2) % Plt Count 594 H (140-440) K/mm3 Lymph % (Auto) Elderly Companion [place] % (Auto) Elderly Companion Eos % (Auto) Elderly Companion Baso % (Auto) Elderly Companion Lymph # Elderly Companion [place] # Elderly Companion Eos # Elderly Companion Baso # Elderly Companion Seg Neutrophils % Elderly Companion Seg Neutrophils # Elderly Companion Sodium 134 L (137-145) mmol/L Potassium 4.0 (3.6-5.0) mmol/L Chloride 96.6 L (98-107) mmol/L Carbon Dioxide 20 L (22-30) mmol/L Anion Gap 21 mmol/L BUN 22 H (7-17) mg/dL Creatinine 1.1 (0.7-1.2) mg/dL Estimated GFR 49 ml/min BUN/Creatinine Ratio 20 % Glucose 354 H (65-100) mg/dL POC Glucose 354 H (70-105) Calcium 8.8 (8.4-10.2) mg/dL Urine Color (Yellow) Urine Turbidity (Clear) Urine pH (5.0-7.0) Ur Specific [place] (1.003-1.030) Urine Protein (Negative) mg/dL Urine Glucose (UA) (Negative) mg/dL Urine Ketones (Negative) mg/dL Urine Blood (Negative) Urine Nitrite (Negative) Urine Bilirubin (Negative) Urine Urobilinogen (<2.0) mg/dL Ur Leukocyte Esterase (Negative) Urine WBC (Auto) (0.0-6.0) /HPF Urine RBC (Auto) (0.0-6.0) /HPF U Epithel Cells (Auto) (0-13.0) /HPF Urine WBC Clumps /HPF Ur Transition Epith Cell /HPF Urine Yeast (Budding) /HPF 03/07/20 Range/Units Unknown WBC (4.5-11.0) K/mm3 RBC (3.65-5.03) M/mm3 Hgb (10.1-14.3) gm/dl Hct (30.3-42.9) % MCV (79-97) fl MCH (28-32) pg MCHC (30-34) % RDW (13.2-15.2) % Plt Count (140-440) K/mm3 Lymph % (Auto) [place] % (Auto) Eos % (Auto) Baso % (Auto) Lymph # [place] # Eos # Baso # Seg Neutrophils % Seg Neutrophils # Sodium (137-145) mmol/L Potassium (3.6-5.0) mmol/L Chloride (98-107) mmol/L Carbon Dioxide (22-30) mmol/L Anion Gap mmol/L BUN (7-17) mg/dL Creatinine (0.7-1.2) mg/dL Estimated GFR ml/min BUN/Creatinine Ratio % Glucose (65-100) mg/dL POC Glucose (70-105) Calcium (8.4-10.2) mg/dL Urine Color Yellow (Yellow) Urine Turbidity Cloudy (Clear) Urine pH 6.0 (5.0-7.0) Ur Specific [place] 1.016 (1.003-1.030) Urine Protein 100 mg/dl (Negative) mg/dL Urine Glucose (UA) >=500 (Negative) mg/dL Urine Ketones Tr (Negative) mg/dL Urine Blood Sm (Negative) Urine Nitrite Neg (Negative) Urine Bilirubin Neg (Negative) Urine Urobilinogen < 2.0 (<2.0) mg/dL Ur Leukocyte Esterase Lg (Negative) Urine WBC (Auto) > 182.0 H (0.0-6.0) /HPF Urine RBC (Auto) 32.0 (0.0-6.0) /HPF U Epithel Cells (Auto) 5.0 (0-13.0) /HPF Urine WBC Clumps 3+ /HPF Ur Transition Epith Cell 2 /HPF Urine Yeast (Budding) 3+ /HPF - Radiology Data Patient: HEYDI DEL VALLE MR#: [id number] : 1950 Acct:[id number] Age/Sex: 68 / F ADM Date: 09/14/19 Loc: ED Attending Dr: Ordering Physician: PAVAN DAILEY MD Date of Service: 09/14/19 Procedure(s): XR spine lumbosacral 2-3V Accession Number(s): [id number] cc: PAVAN DAILEY MD Fluoro Time In Minutes: LUMBAR SPINE 3 VIEWS INDICATION / CLINICAL INFORMATION: MAIN: fall THIS AM. COMPARISON: None available. FINDINGS: 8 mm of anterolisthesis L4 on L5. I cannot determine if this is chronic or new. No appreciable fracture. Signer Name: Salvador Simental MD Signed: 09/14/2019 11:16 AM Workstation Name: [id number] - Medical Decision Making Patient is a 68-year-old female who is presenting with "altered mental status". In our discussion with the custodial it seems as though the patient at this time is at her baseline. Initially when she was here presented she stated her lower back hurt however she could not give any other information. Patient noted to be mumbling to herself at times and sleep other times. Patient does have evidence of urinary tract infection. It appears as though this is worsened since her last urinalysis. Patient will be put on Levaquin. She was able to tolerate p.o. here. Patient appears stable for discharge. Critical care attestation.: If time is entered above; I have spent that time in minutes in the direct care of this critically ill patient, excluding procedure time. ED Disposition Clinical Impression: UTI (urinary tract infection) Qualifiers: Urinary tract infection type: acute cystitis Hematuria presence: without hematuria Qualified Code(s): N30.00 - Acute cystitis without hematuria Disposition: - TO HOME OR SELFCARE Is pt being admited?: No Does the pt Need Aspirin: No Condition: Stable Instructions: Urinary Tract Infection in Women (ED) Referrals: PRIMARY CARE, [Primary Care Provider] - 3-5 Days Time of Disposition: 15:35
[2019-09-14 12:34] LABS: Bilirubin,Urine NEG (Negative); Blood,Urine SM (Negative); Color,Urine Yellow (Yellow); Urobilinogen,Urine < 2.0 mg/dL (<2.0)
[2019-09-14 12:45] LABS: WBC,Urine > 182.0 /HPF (0.0-6.0)
[2019-09-14 12:48] VITALS: BP 124/61
[2019-09-14] MEDS ORDERED: levoFLOXacin 500 MG TAB PO ONE (14:40)
== END 2019-09-14 16:47 | disposition home or self-care (01) ==
LOC: ED 08:05
DX: N39.0 Urinary tract infection, site not specified (principal); R41.82 Altered mental status, unspecified; M54.5 Low back pain; I10 Essential (primary) hypertension; E11.9 Type 2 diabetes mellitus without complications; F03.90 Unspecified dementia, unspecified severity, without behavioral disturbance, psychotic disturbance, mood disturbance, and anxiety; Z79.899 Other long term (current) drug therapy; Z79.4 Long term (current) use of insulin; Z88.8 Allergy status to other drugs, medicaments and biological substances
CPT/HCPCS: 36415; 72100; 80048; 81001; 82962; 85025; 96360; 99284; J7030

== ENCOUNTER 2019-10-18 14:24 | Inpatient (IN) | payer MEDICARE ==
--- NOTE | 2019-10-18 15:03 | Emergency Department Report ---
HPI - General Chief Complaint: Altered Mental Status Time Seen by Provider: 10/18/19 14:37 - HPI HPI: Room 8 The patient is a 68-year-old female present with a chief complaint of altered mental status. The patient reportedly lives at [facility]. EMS reports the patient has had worsening altered mental status for 1 week. The patient is nonverbal and does not make eye contact. Patient does not respond verbally to his sternal rub. ED Past Medical Hx - Past Medical History Hx Hypertension: Yes Hx Diabetes: Yes Hx Psychiatric Treatment: Yes Hx Dementia: Yes - Surgical History Past Surgical History?: No - Family History Family history: no significant - Social History Smoking Status: Unknown if ever smoked Substance Use Type: None - Medications Home Medications: Home Medications Medication Instructions Recorded Confirmed Last Taken Type Aspirin [Aspirin BABY CHEW TAB] 81 mg PO QDAY 08/15/19 10/18/19 Unknown History Cholecalciferol Vit D3 [Vitamin D3 1,000 units PO QDAY 08/15/19 10/18/19 Unknown History 1,000 UNIT TAB] Divalproex Dr [Depakote Dr] 500 mg PO BID 08/15/19 10/18/19 Unknown History Ferrous Sulfate [Iron 325 MG] 325 mg PO QDAY 08/15/19 10/18/19 Unknown History Hydroxyzine HCl [hydrOXYzine] 25 mg PO Q6H 08/15/19 10/18/19 Unknown History Insulin Glargine,Hum.rec.anlog 100 unit SQ QDAY 08/15/19 10/18/19 Unknown History [Basaglar Kwikpen U-100] Memantine 10 mg PO HS 08/15/19 10/18/19 Unknown History risperiDONE [RisperDAL] 1 mg PO HS 08/15/19 10/18/19 Unknown History Basaglar Kwikpen U-100 17 units SUB-Q QAC 09/05/19 10/18/19 Unknown History Memantine 5 mg PO QAC 09/05/19 10/18/19 Unknown History Vitamin D3 1,000 UNIT TAB 1 tab PO QDAY 09/05/19 10/18/19 Unknown History clonazePAM 0.5 mg PO BID 09/05/19 10/18/19 Unknown History donepeziL [Aricept] 10 mg PO QHS 09/05/19 10/18/19 Unknown History traMADoL [Ultram 50 MG tab] 50 mg PO Q6HR PRN 09/05/19 10/18/19 Unknown History traZODone [Desyrel] 50 mg PO QHS PRN 09/05/19 10/18/19 Unknown History Acetaminophen [Acetaminophen TAB] 1 tab PO Q4H PRN #15 tablet 09/06/19 10/18/19 Unknown Rx amLODIPine 5 mg PO QDAY #30 tablet 09/06/19 10/18/19 Unknown Rx ED Review of Systems ROS: Stated complaint: AMS Other details as noted in HPI Comment: Unobtainable due to pts medical conditions Physical Exam - Physical Exam Vital Signs: Vital Signs 10/18/19 10/18/19 14:28 14:30 Temperature 98.5 F Pulse Rate 97 H 75 Respiratory 17 13 Rate Blood Pressure 131/75 125/49 [Left] O2 Sat by Pulse 100 98 Oximetry Physical Exam: GENERAL: The patient is well-developed well-nourished female lying on stretcher nonverbal not making eye contact. [] HEENT: Normocephalic. Atraumatic. Pupils 3 to 2 mm bilaterally NECK: Supple. Trachea midline CHEST/LUNGS: Clear to auscultation. There is no respiratory distress noted. HEART/CARDIOVASCULAR: Regular. There is no tachycardia. There is no gallop rub or murmur. ABDOMEN: Abdomen is soft, nontender. Patient has normal bowel sounds. There is no abdominal distention. SKIN: There is no rash. There is no edema. There is no diaphoresis. NEURO: The patient is awake but stares at the ceiling. Patient does not respond verbally or make eye contact. Patient localizes with sternal rub. The patient is not cooperative with neurologic exam. MUSCULOSKELETAL: There is no evidence of acute injury. ED Course Vital Signs 10/18/19 10/18/19 14:28 14:30 Temperature 98.5 F Pulse Rate 97 H 75 Respiratory 17 13 Rate Blood Pressure 131/75 125/49 [Left] O2 Sat by Pulse 100 98 Oximetry ED Medical Decision Making - Lab Data Result diagrams: 10/18/19 15:16 10/18/19 15:16 Laboratory Tests 10/18/19 10/18/19 10/18/19 14:50 15:16 15:16 WBC 13.1 H RBC 4.70 Hgb 13.1 Hct 40.7 MCV 87 MCH 28 MCHC 32 RDW 16.2 H Plt Count 728 H Lymph % (Auto) 7.3 L [place] % (Auto) 7.1 Eos % (Auto) 0.1 Baso % (Auto) 1.0 Lymph # 0.9 L [place] # 0.9 H Eos # 0.0 Baso # 0.1 Seg Neutrophils % 84.5 H Seg Neutrophils # 11.0 H PT 13.1 INR 0.98 APTT 29.7 Sodium Potassium Chloride Carbon Dioxide Anion Gap BUN Creatinine Estimated GFR BUN/Creatinine Ratio Glucose POC Glucose 263 H Calcium Total Bilirubin AST ALT Alkaline Phosphatase Ammonia Total Creatine Kinase CK-MB (CK-2) CK-MB (CK-2) Rel Index Troponin T Total Protein Albumin Albumin/Globulin Ratio Triglycerides Cholesterol LDL Cholesterol Direct HDL Cholesterol Cholesterol/HDL Ratio TSH Free T4 Urine Color Urine Turbidity Urine pH Ur Specific Felt Urine Protein Urine Glucose (UA) Urine Ketones Urine Blood Urine Nitrite Urine Bilirubin Urine Urobilinogen Ur Leukocyte Esterase Urine WBC (Auto) Urine RBC (Auto) U Epithel Cells (Auto) Urine Bacteria (Auto) Urine Mucus Urine Yeast (Budding) Valproic Acid Plasma/Serum Alcohol 10/18/19 10/18/19 10/18/19 15:16 15:16 15:16 WBC RBC Hgb Hct MCV MCH MCHC RDW Plt Count Lymph % (Auto) [place] % (Auto) Eos % (Auto) Baso % (Auto) Lymph # [place] # Eos # Baso # Seg Neutrophils % Seg Neutrophils # PT INR APTT Sodium 144 Potassium 4.9 Chloride 104.6 Carbon Dioxide 26 Anion Gap 18 BUN 26 H Creatinine 0.7 Estimated GFR > 60 BUN/Creatinine Ratio 37 Glucose 281 H POC Glucose Calcium 9.1 Total Bilirubin 0.40 AST 11 ALT 9 Alkaline Phosphatase 91 Ammonia 40.0 Total Creatine Kinase 235 H CK-MB (CK-2) 7.0 H CK-MB (CK-2) Rel Index 2.9 Troponin T 0.054 H Total Protein 7.7 Albumin 3.2 L Albumin/Globulin Ratio 0.7 Triglycerides 154 H Cholesterol 184 LDL Cholesterol Direct 115 HDL Cholesterol 40 Cholesterol/HDL Ratio 4.60 TSH 4.560 H Free T4 1.33 Urine Color Urine Turbidity Urine pH Ur Specific Felt Urine Protein Urine Glucose (UA) Urine Ketones Urine Blood Urine Nitrite Urine Bilirubin Urine Urobilinogen Ur Leukocyte Esterase Urine WBC (Auto) Urine RBC (Auto) U Epithel Cells (Auto) Urine Bacteria (Auto) Urine Mucus Urine Yeast (Budding) Valproic Acid Plasma/Serum Alcohol 10/18/19 10/18/19 10/18/19 15:22 15:42 15:42 WBC RBC Hgb Hct MCV MCH MCHC RDW Plt Count Lymph % (Auto) [place] % (Auto) Eos % (Auto) Baso % (Auto) Lymph # [place] # Eos # Baso # Seg Neutrophils % Seg Neutrophils # PT INR APTT Sodium Potassium Chloride Carbon Dioxide Anion Gap BUN Creatinine Estimated GFR BUN/Creatinine Ratio Glucose POC Glucose Calcium Total Bilirubin AST ALT Alkaline Phosphatase Ammonia Total Creatine Kinase CK-MB (CK-2) CK-MB (CK-2) Rel Index Troponin T Total Protein Albumin Albumin/Globulin Ratio Triglycerides Cholesterol LDL Cholesterol Direct HDL Cholesterol Cholesterol/HDL Ratio TSH Free T4 Urine Color Yellow Urine Turbidity Slightly-cloudy Urine pH 5.0 Ur Specific Felt 1.017 Urine Protein 30 mg/dl Urine Glucose (UA) >=500 Urine Ketones 20 Urine Blood Neg Urine Nitrite Neg Urine Bilirubin Neg Urine Urobilinogen 2.0 Ur Leukocyte Esterase Mod Urine WBC (Auto) 59.0 H Urine RBC (Auto) 5.0 U Epithel Cells (Auto) < 1.0 Urine Bacteria (Auto) 2+ Urine Mucus 2+ Urine Yeast (Budding) 3+ Valproic Acid 58.8 Plasma/Serum Alcohol < 0.01 - EKG Data -: EKG Interpreted by [place] EKG shows normal: sinus rhythm Rate: normal - EKG Data When compared to previous EKG there are: previous EKG unavailable Interpretation: other (No ischemic changes seen) - Radiology Data Radiology results: report reviewed (CT head), image reviewed (CT head) [address] [address] Cat Scan Report Signed Patient: HEYDI DEL VALLE MR#: [id number] : 1950 Acct:[id number] Age/Sex: 68 / F ADM Date: 10/18/19 Loc: ED Attending Dr: Ordering Physician: ANNIE MARTIN MD Date of Service: 10/18/19 Procedure(s): CT head/brain wo con Accession Number(s): [id number] cc: ANNIE MARTIN MD CT head/brain wo con INDICATION / CLINICAL INFORMATION: 68 years Female; Altered mental status. TECHNIQUE: Routine CT head without contrast. All CT scans at this location are performed using CT dose reduction for ALARA by means of automated exposure control. COMPARISON: The study is compared to the previous CT of 09/04/2019. FINDINGS: BRAIN / INTRACRANIAL CONTENTS: There is mild residual edema and hematoma involving the left frontal scalp from the previous CT. There is encephalomalacia involving the posterior right frontal lobe most consistent with old infarct. There is otherwise moderate cerebral white matter disease most consistent with microvascular angiopathy. There is no CT evidence of acute intracranial hemorrhage or significant mass effect. There is mild cerebral atrophy with continued mild prominence of the ventricular system. ORBITS: No significant abnormality of visualized orbits. SINUSES / MASTOIDS: There is mild opacification involving inferior left maxillary sinus. CRANIOCERVICAL JUNCTION: No significant abnormality. ADDITIONAL FINDINGS: None. IMPRESSION: 1. 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 Signer Name: Boni Yusuf MD Signed: 10/18/2019 5:16 PM Workstation Name: [id number] Transcribed By: MR Dictated By: Boni Yusuf MD Electronically Authenticated By: Boni Yusuf MD Signed Date/Time: 10/18/191715 DD/ 01 TD/TT: - Differential Diagnosis ICH, hepatic encephalopathy, dehydration, Critical care attestation.: If time is entered above; I have spent that time in minutes in the direct care of this critically ill patient, excluding procedure time. ED Disposition Clinical Impression: Altered mental status, Elevated troponin, UTI (urinary tract infection) Disposition: OP ADMIT IP TO THIS HOSP Is pt being admited?: Yes Does the pt Need Aspirin: Yes Condition: Fair Time of Disposition: 17:28 (Hospitalist paged (Dr Escobar))
[2019-10-18 15:58] LABS: Bacteria,Urine 2+ /HPF (Negative); Bilirubin,Urine NEG (Negative); Blood,Urine NEG (Negative); Color,Urine Yellow (Yellow); Mucus,Urine 2+ /HPF
[2019-10-18 16:01] LABS: Basophils # (Auto) 0.1 K/mm3 (0.0-0.1); Eosinophils % (Auto) 0.1 % (0.0-4.3); Hematocrit 40.7 % (30.3-42.9); Hemoglobin 13.1 gm/dl (10.1-14.3); Lymphocytes # (Auto) 0.9 K/mm3 (1.2-5.4); Lymphocytes % (Auto) 7.3 % (13.4-35.0); Mean Corpuscular HGB Conc 32 % (30-34); Mean Corpuscular Volume 87 fl (79-97); Monocytes # (Auto) 0.9 K/mm3 (0.0-0.8); Monocytes % (Auto) 7.1 % (0.0-7.3); Platelet Count 728 K/mm3 (140-440); Red Cell Distribution Width 16.2 % (13.2-15.2)
[2019-10-18 16:12] LABS: INR 0.98 (0.87-1.13)
[2019-10-18 16:13] LABS: Partial Thromboplastin Time 29.7 Sec. (24.2-36.6)
[2019-10-18 16:19] LABS: Alanine Aminotransferase 9 units/L (7-56); Albumin 3.2 g/dL (3.9-5); BUN/Creatinine Ratio 37; Blood Urea Nitrogen 26 mg/dL (7-17); Calcium 9.1 mg/dL (8.4-10.2); Hemolysis Index 4
[2019-10-18 16:33] LABS: Free T4 (Free Thyroxine) 1.33 ng/dL (0.76-1.46)
[2019-10-18 16:34] LABS: HDL Cholesterol 40 mg/dL (40-59); LDL Cholesterol,Direct 115 mg/dL (50-130)
--- NOTE | 2019-10-18 17:20 | Cat Scan Report ---
CT head/brain wo con INDICATION / CLINICAL INFORMATION: 68 years Female; Altered mental status. TECHNIQUE: Routine CT head without contrast. All CT scans at this location are performed using CT dos e reduction for ALARA by means of automated exposure control. COMPARISON: The study is compared to the previous CT of 09/04/2019. FINDINGS: BRAIN / INTRACRANIAL CONTENTS: There is mild residual edema and hematoma involving the left frontal s calp from the previous CT. There is encephalomalacia involving the posterior right frontal lobe most consistent with old infarct. There is otherwise moderate cerebral white matter disease most consisten t with microvascular angiopathy. There is no CT evidence of acute intracranial hemorrhage or signific ant mass effect. There is mild cerebral atrophy with continued mild prominence of the ventricular system. ORBITS: No significant abnormality of visualized orbits. SINUSES / MASTOIDS: There is mild opacification involving inferior left maxillary sinus. CRANIOCERVICAL JUNCTION: No significant abnormality. ADDITIONAL FINDINGS: None. IMPRESSION: 1. 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 Signer Name: Boni Yusuf MD Signed: 10/18/2019 5:16 PM Workstation Name: [id number]
[2019-10-18] MEDS ORDERED: ASPIRIN 300 MG RECT SUPP PR ONE (17:28)
--- NOTE | 2019-10-19 01:28 | Event Note ---
Date: 10/18/19 See history and physical in the reports Acute metabolic encephalopathy Urinary tract infection Rule out cerebrovascular accident
[2019-10-19] MEDS ORDERED: ACETAMINOPHEN 325 MG TAB PO PRN ×2 (01:33→01:34)
[2019-10-19] MEDS ORDERED: METOCLOPRAMIDE 10 MG/2 ML INJ IV PRN (01:34)
[2019-10-19] MEDS ORDERED: ONDANSETRON 4 MG/2 ML INJ IV PRN (01:34)
[2019-10-19] MEDS ORDERED: HYDROmorphone 1 MG/1 ML INJ IV PRN (01:34)
--- NOTE | 2019-10-19 01:48 | History and Physical Report ---
CHIEF COMPLAINT: Altered mental status for 1 week. HISTORY OF PRESENT ILLNESS: A 68-year-old female with history of hypertension, diabetes, dementia and psychiatric treatment, comes in for altered mental status for 1 week. The patient is nonverbal and does not make any eye contact. Alert, but not oriented. Lives in [facility]. No fever. PAST MEDICAL HISTORY: Significant for hypertension, diabetes, psychiatric treatment, dementia. PAST SURGICAL HISTORY: Not available. FAMILY HISTORY: Not available. SOCIAL HISTORY: Lives at [facility]. CURRENT MEDICATIONS: On the chart. REVIEW OF SYSTEMS: Significant for altered sensorium. Alert, but not oriented. No fever. PHYSICAL EXAMINATION: GENERAL: Elderly female, looks older than her age. VITAL SIGNS: Blood pressure is 160/54, temperature is 98.5, was not febrile in the Emergency Room. Sats are 98%. HEENT: Dry mucous membranes. NECK: Supple, no lymphadenopathy, no thyromegaly. LUNGS: Clear to auscultation and percussion. Good air entry. CARDIOVASCULAR: S1, S2 heard. No gallop, no murmur, no rub. Apical impulse in left fifth intercostal space and midclavicular line. ABDOMEN: Soft and benign. No hepatosplenomegaly. No guarding, no rigidity. EXTREMITIES: Good pedal pulses. CENTRAL NERVOUS SYSTEM: Alert, but not oriented. Lethargic. LABORATORY DATA: Head CT shows old infarcts involving the posterior right frontal lobe and moderate microvascular angiopathy as described. No intracranial hemorrhage. Chest x-ray was not available. Labs are significant for white count of 13,100, H and H is 13.1 and 40.7, platelet count is 728,000. Sodium is 144, potassium is 4.9, BUN and creatinine is 26 and 0.7, CK is 235, CK-MB is 7.0. Troponin is 0.054. Triglycerides are 154. TSH is 4.56. Urine shows 59 white cells. ASSESSMENT AND PLAN: 1. Acute metabolic encephalopathy, etiology unclear. Urinary tract infection may be the contributing factor. Dehydration may be the contributing factor. IV fluids and IV Rocephin for now. 2. Urinary tract infection. The patient on IV ceftriaxone. 3. Non-ST segment elevated myocardial infarction type 2. We will trend the troponin. Given the patient's dementia, we will not be aggressive in getting a stress test at this point. 4. High TSH. Free T4 is normal. Possible euthyroid sick syndrome. 5. Type 2 diabetes, coverage for now. Also, continue insulin. 6. Hypertension. Continue antihypertensives. 7. Seizure disorder. Continue Depakote. 8. Deep venous thrombosis prophylaxis, heparin 5000 q. 12 hours. JOB# [id number] VSM/NTS [id number]
[2019-10-19] MEDS: SODIUM CHLORIDE 0.9% 1000 ML 1,000 ML IV SCH (04:00)
[2019-10-19 04:51] LABS: Basophils # (Auto) 0.1 K/mm3 (0.0-0.1); Basophils % (Auto) 0.6 % (0.0-1.8); Eosinophils # (Auto) 0.1 K/mm3 (0.0-0.4); Eosinophils % (Auto) 0.6 % (0.0-4.3); Hematocrit 36.2 % (30.3-42.9); Hemoglobin 11.7 gm/dl (10.1-14.3); Lymphocytes # (Auto) 1.2 K/mm3 (1.2-5.4); Lymphocytes % (Auto) 11.2 % (13.4-35.0); Mean Corpuscular HGB Conc 32 % (30-34); Mean Corpuscular Volume 85 fl (79-97); Monocytes # (Auto) 1.3 K/mm3 (0.0-0.8); Monocytes % (Auto) 11.7 % (0.0-7.3); Platelet Count 664 K/mm3 (140-440); Red Blood Count 4.24 M/mm3 (3.65-5.03); Red Cell Distribution Width 15.9 % (13.2-15.2)
[2019-10-19 05:02] LABS: Alanine Aminotransferase 5 units/L (7-56); Albumin 2.7 g/dL (3.9-5); BUN/Creatinine Ratio 33; Blood Urea Nitrogen 20 mg/dL (7-17); Calcium 8.5 mg/dL (8.4-10.2); Hemolysis Index 7
[2019-10-19] MEDS: INSULIN LISPRO 100 UNIT/ML SUB-Q SCH ×4 (08:20→21:58)
[2019-10-19] MEDS: DIVALPROEX DR 500 MG TAB PO SCH ×2 (09:40→21:57)
[2019-10-19] MEDS: cefTRIAXone/NS 1 GM/50 ML 1 GM/50 ML BAG IV SCH (09:40)
[2019-10-19] MEDS: ASPIRIN 81 MG TAB CHEW PO SCH (09:40)
[2019-10-19] MEDS ORDERED: amLODIPine 5 MG TAB PO SCH (10:00)
--- NOTE | 2019-10-19 10:34 | Progress Note ---
Assessment and Plan Assessment and plan: --Metabolic encephalopathy; multifactorial Dementia, possible UTI on empiric antibiotics Neurochecks, treat the underlying cause --Possible UTI; IV fluids Empiric antibiotics, follow cultures --Non-ST elevation CT/nonspecific elevation of troponins Serial cardiac enzymes, cardiology consult Echo 2 months ago normal ejection fraction, impaired left relaxation of left ventricle --Type 2 diabetes mellitus; Accu-Chek sliding scale coverage ADA diet Insulin as needed --Hypertension; moderate control Continue current antihypertensives and PRN medications --History of seizure disorder; Seizure precautions, continue current management --Dementia; probably the cause of altered level of consciousness Continue Aricept memantine --Severe protein calorie malnutrition; Nutrition supplements and supportive care --DVT prophylaxis: SCD, Lovenox --Full CODE STATUS Monitor closely and adjust the management as needed Plan of care reviewed with the patient's nurse History Interval history: 68-year-old female patient with significant history of hypertension dementia psychiatric problems was admitted through emergency room with 1 week of altered level of consciousness from assisted living [facility].Patient is lethargic responds to deep stimuli, after calling out her name and sternal rub she open her eyes, responded to simple questions. Patient denies any chest pain or shortness of breath Patient's vital signs reviewed PUI?: No Hospitalist Physical - Constitutional Vitals: Temp Pulse Resp BP Pulse Ox 97.9 F 76 18 172/59 97 10/19/19 07:30 10/19/19 07:30 10/19/19 04:26 10/19/19 07:30 10/19/19 07:30 General appearance: Present: no acute distress, well-nourished, other (Responds to simple questions) - EENT Eyes: Present: PERRL, EOM intact - Neck Neck: Present: supple, normal ROM - Respiratory Respiratory effort: normal Respiratory: bilateral: diminished, negative: rales, rhonchi, wheezing - Cardiovascular Rhythm: regular Heart Sounds: Present: S1 & S2 - Extremities Extremities: no ischemia, No edema - Abdominal General gastrointestinal: soft, non-tender, non-distended, normal bowel sounds - Integumentary Integumentary: Present: clear, warm - Psychiatric Psychiatric: other (Normally communicative, lethargic) - Neurologic Neurologic: moves all extremities Results - Labs CBC & Chem 7: 10/19/19 04:10 10/19/19 04:10 Labs: Laboratory Last Values WBC 10.9 K/mm3 (4.5-11.0) 10/19/19 04:10 RBC 4.24 M/mm3 (3.65-5.03) 10/19/19 04:10 Hgb 11.7 gm/dl (10.1-14.3) 10/19/19 04:10 Hct 36.2 % (30.3-42.9) 10/19/19 04:10 MCV 85 fl (79-97) 10/19/19 04:10 MCH 28 pg (28-32) 10/19/19 04:10 MCHC 32 % (30-34) 10/19/19 04:10 RDW 15.9 % (13.2-15.2) H 10/19/19 04:10 Plt Count 664 K/mm3 (140-440) H 10/19/19 04:10 Lymph % (Auto) 11.2 % (13.4-35.0) L 10/19/19 04:10 [place] % (Auto) 11.7 % (0.0-7.3) H 10/19/19 04:10 Eos % (Auto) 0.6 % (0.0-4.3) 10/19/19 04:10 Baso % (Auto) 0.6 % (0.0-1.8) 10/19/19 04:10 Lymph # 1.2 K/mm3 (1.2-5.4) 10/19/19 04:10 [place] # 1.3 K/mm3 (0.0-0.8) H 10/19/19 04:10 Eos # 0.1 K/mm3 (0.0-0.4) 10/19/19 04:10 Baso # 0.1 K/mm3 (0.0-0.1) 10/19/19 04:10 Seg Neutrophils % 75.9 % (40.0-70.0) H 10/19/19 04:10 Seg Neutrophils # 8.3 K/mm3 (1.8-7.7) H 10/19/19 04:10 PT 13.1 Sec. (12.2-14.9) 10/18/19 15:16 INR 0.98 (0.87-1.13) 10/18/19 15:16 APTT 29.7 Sec. (24.2-36.6) 10/18/19 15:16 Sodium 148 mmol/L (137-145) H 10/19/19 04:10 Potassium 3.7 mmol/L (3.6-5.0) D 10/19/19 04:10 Chloride 106.7 mmol/L (98-107) 10/19/19 04:10 Carbon Dioxide 29 mmol/L (22-30) 10/19/19 04:10 Anion Gap 16 mmol/L 10/19/19 04:10 BUN 20 mg/dL (7-17) H 10/19/19 04:10 Creatinine 0.6 mg/dL (0.7-1.2) L 10/19/19 04:10 Estimated GFR > 60 ml/min 10/19/19 04:10 BUN/Creatinine Ratio 33 % 10/19/19 04:10 Glucose 210 mg/dL (65-100) H 10/19/19 04:10 POC Glucose 207 (70-105) H 10/19/19 07:46 Hemoglobin A1c 8.3 % (4-6) H 10/19/19 04:10 Calcium 8.5 mg/dL (8.4-10.2) 10/19/19 04:10 Total Bilirubin 0.30 mg/dL (0.1-1.2) 10/19/19 04:10 AST 13 units/L (5-40) 10/19/19 04:10 ALT 5 units/L (7-56) L 10/19/19 04:10 Alkaline Phosphatase 72 units/L (35-129) 10/19/19 04:10 Ammonia 40.0 umol/L (25-60) 10/18/19 15:16 Total Creatine Kinase 235 units/L (30-135) H 10/18/19 15:16 CK-MB (CK-2) 7.0 ng/mL (0.0-4.0) H 10/18/19 15:16 CK-MB (CK-2) Rel Index 2.9 (0-4) 10/18/19 15:16 Troponin T 0.054 ng/mL (0.00-0.029) H 10/18/19 15:16 Total Protein 6.3 g/dL (6.3-8.2) 10/19/19 04: Albumin 2.7 g/dL (3.9-5) L 10/19/19 04: Albumin/Globulin Ratio 0.8 % 10/19/19 04:10 Triglycerides 154 mg/dL (2-149) H 10/18/19 15:16 Cholesterol 184 mg/dL (50-199) 10/18/19 15:16 LDL Cholesterol Direct 115 mg/dL (50-130) 10/18/19 15:16 HDL Cholesterol 40 mg/dL (40-59) 10/18/19 15:16 Cholesterol/HDL Ratio 4.60 % 10/18/19 15:16 TSH 4.560 mlU/mL (0.270-4.200) H 10/18/19 15: Free T4 1.33 ng/dL (0.76-1.46) 10/18/19 15:16 Urine Color Yellow (Yellow) 10/18/19 15: Urine Turbidity Slightly-cloudy (Clear) 10/18/19: Urine pH 5.0 (5.0-7.0) 10/18/19 15: Ur Specific [place] 1.017 (1.003-1.030) 10/18/19 15: Urine Protein 30 mg/dl mg/dL (Negative) 10/18/19: Urine Glucose (UA) >=500 mg/dL (Negative) 10/18/19: Urine Ketones 20 mg/dL (Negative) 10/18/19 15: Urine Blood Neg (Negative) 10/18/19: Urine Nitrite Neg (Negative) 10/18/19: Urine Bilirubin Neg (Negative) 10/18/19: Urine Urobilinogen 2.0 mg/dL (<2.0) 10/18/19 15: Ur Leukocyte Esterase Mod (Negative) 10/18/19: Urine WBC (Auto) 59.0 /HPF (0.0-6.0) H 10/18/19 15:22 Urine RBC (Auto) 5.0 /HPF (0.0-6.0) 10/18/19 15: U Epithel Cells (Auto) < 1.0 /HPF (0-13.0) 10/18/19:22 Urine Bacteria (Auto) 2+ /HPF (Negative) 10/18/19 15:22 Urine Mucus 2+ /HPF 10/18/19 15:22 Urine Yeast (Budding) 3+ /HPF 10/18/19 15:22 Valproic Acid 58.8 ug/mL (50-100) 10/18/19 15:42 Plasma/Serum Alcohol < 0.01 % (0-0.07) 10/18/19 15:42 Ch/IV: IV Catheter Type [Right INT / Saline Lock Forearm] Active Medications - Current Medications Current Medications: Generic Name Dose Route Start Last Admin Trade Name Freq PRN Reason Stop Dose Admin Acetaminophen 650 mg 10/19/19 01:33 Tylenol PO Q4H PRN Pain MILD(1-3)/Fever >100.5/FLORES Amlodipine Besylate 5 mg 10/19/19 10:00 10/19/19 09:40 Amlodipine PO 5 mg QDAY SOPHIE Administration Aspirin 81 mg 10/19/19 10:00 10/19/19 09:40 Baby Aspirin PO 81 mg QDAY SOPHIE Administration Divalproex Sodium 500 mg 10/19/19 10:00 10/19/19 09:[address] PO 500 mg BID SOPHIE Administration Donepezil HCl 10 mg 10/19/19 22:00 Aricept PO QHS SOPHIE Hydromorphone HCl 0.25 mg 10/19/19 01:34 Dilaudid IV Q3H PRN Pain, Moderate (4-6) Sodium Chloride 1,000 mls @ 75 mls/hr 10/19/19 01:45 10/19/19 04:00 Nacl 0.9% 1000 Ml IV 75 mls/hr DIRECT SOPHIE Administration Ceftriaxone Sodium 1 gm in 50 mls @ 100 mls/hr 10/19/19 10:00 10/19/19 09:40 Rocephin/Ns 1 Gm/50 Ml IV 100 mls/hr Q24HR SOPHIE Administration Protocol Insulin Human Lispro 0 unit 10/19/19 07:30 10/19/19 08:20 Humalog SUB-Q 3 unit ACHS SOPHIE Administration Protocol Memantine 10 mg 10/19/19 22:00 Memantine PO HS SOPHIE Metoclopramide HCl 10 mg 10/19/19 01:34 Reglan IV Q6H PRN Nausea And Vomiting Ondansetron HCl 4 mg 10/19/19 01:34 Zofran IV Q8H PRN Nausea And Vomiting Sodium Chloride 10 ml 10/19/19 10:00 10/19/19 09:41 Sodium Chloride Flush Syringe 10 Ml IV 10 ml BID SOPHIE Administration Sodium Chloride 10 ml 10/19/19 01:34 Sodium Chloride Flush Syringe 10 Ml IV PRN PRN LINE FLUSH Nutrition/Malnutrition Assess - Dietary Evaluation Nutrition/Malnutrition Findings: Nutrition Notes Start: 10/19/19 08:34 Freq: Status: Active Protocol: Document 10/19/19 08:34 LP (Rec: 10/19/19 08:46 LP [id number]) 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 Pt with sacral wound. Burn Absent Trauma Absent Minimum of two criteria No physical signs of malnutrition #2 Nutrition Diagnosis Increased nutrient needs ( specify in comment below) Comments: Protein Etiology Wound healing As Evidenced by Signs and Symptoms Pt with sacral wound #1 Nutrition Diagnosis Predicted suboptimal energy intake Etiology Dementia As Evidenced by Signs and Symptoms Pt noted with sacral wound and unable to obtain nutrition hx Is patient on ventilator? No Is Patient Ambulatory and/or Out of Bed No REE-([facility]-confined to bed) 1567.512 Calculation Used for Recommendations [facility] Additional Notes Protein needs are 97-116g (1. 25-1.5g/kg) Fluid needs are 1ml/kcal Nutrition Intervention Change Diet Order: Continue Add Supplement/Snack (indicate name/kcal Ensure High protein BID /protein ) Provides kCal: 320 Provides Protein (gm) 32 Goal #1 Meet at least 80% of kcal and protein needs Goal #2 Wound healing Anticipated Discharge Needs: Consistent CHO diet with ONS as needed Follow-Up By: 10/22/19 Additional Comments Follow for intakes, ONS tolerance
[2019-10-19] MEDS ORDERED: hydrALAZINE 20 MG/1 ML INJ IV PRN (10:40)
[2019-10-19] MEDS ORDERED: ATROPINE 1 MG/ML VIAL IV PRN (18:12)
--- NOTE | 2019-10-19 18:12 | Event Note ---
Date: 10/19/19 Nurse reports that patient had an episode of bradycardia, and 2-second pause on telemetry And patient was unresponsive. When I went to evaluate the patient patient is comfortable Patient responded on deep stimuli, open her eyes Heart rate at the time of my evaluation was between 60s to 80s EKG, telemetry strips to be placed in chart, cardiology consult Atropine as needed. hold AV aldair blocking agents Above plan of care discussed with the patient's nurse. Patient is hemodynamically stable
[2019-10-19] MEDS: ENOXAPARIN 40 MG/0.4 ML INJ SUB-Q SCH (21:57)
[2019-10-19] MEDS: DONEPEZIL 10 MG TAB PO SCH (21:58)
[2019-10-19] MEDS: MEMANTINE 10 MG TAB PO SCH (21:58)
[2019-10-20] MEDS: SODIUM CHLORIDE 0.9% 1000 ML 1,000 ML IV SCH (05:51)
[2019-10-20] MEDS: INSULIN LISPRO 100 UNIT/ML SUB-Q SCH ×4 (08:35→22:53)
--- NOTE | 2019-10-20 09:36 | Progress Note ---
Assessment and Plan Assessment and plan: --Brief episode of bradycardia yesterday; Amlodipine held, today heart rate ranges between 50-63 Cardiology following --Non-ST elevation WI/nonspecific elevation of troponins Serial cardiac enzymes, cardiology consult Echo 2 months ago normal ejection fraction, impaired left relaxation of left ventricle Cardiology following --Metabolic encephalopathy; multifactorial Dementia, possible UTI on empiric antibiotics Neurochecks, treat the underlying cause --Possible UTI; IV fluids Empiric antibiotics, follow cultures --Type 2 diabetes mellitus; Accu-Chek sliding scale coverage ADA diet Insulin as needed --Hypertension; moderate control Continue current antihypertensives and PRN medications --History of seizure disorder; Seizure precautions, continue current management --Dementia; probably the cause of altered level of consciousness Continue Aricept memantine --Severe protein calorie malnutrition; Nutrition supplements and supportive care --DVT prophylaxis: SCD, Lovenox --Full CODE STATUS Monitor closely and adjust the management as needed Plan of care reviewed with the patient's nurse History Interval history: Patient seen and examined at bedside this morning Patient is more alert responding to very simple questions Had a brief episode of altered level of consciousness and bradycardia Amlodipine discontinued, patient's heart rate is between fifth higher 50s and 60s today Vital signs reviewed PUI?: No Hospitalist Physical - Constitutional Vitals: Temp Pulse Resp BP Pulse Ox 97.1 F L 50 L 20 158/47 98 10/20/19 07:41 10/20/19 07:41 10/20/19 07:41 10/20/19 07:41 10/20/19 07:41 General appearance: Present: no acute distress, well-nourished, other (More alert today) - EENT Eyes: Present: PERRL, EOM intact - Neck Neck: Present: supple, normal ROM - Respiratory Respiratory effort: normal Respiratory: bilateral: diminished, negative: rales, rhonchi, wheezing - Cardiovascular Rhythm: regular Heart Sounds: Present: S1 & S2 - Extremities Extremities: no ischemia, No edema - Abdominal General gastrointestinal: soft, non-tender, non-distended, normal bowel sounds - Integumentary Integumentary: Present: clear, warm - Psychiatric Psychiatric: appropriate mood/affect, cooperative - Neurologic Neurologic: CNII-XII intact, moves all extremities Results - Labs CBC & Chem 7: 10/19/19 04:10 10/19/19 04:10 Labs: Laboratory Last Values WBC 10.9 K/mm3 (4.5-11.0) 10/19/19 04:10 RBC 4.24 M/mm3 (3.65-5.03) 10/19/19 04:10 Hgb 11.7 gm/dl (10.1-14.3) 10/19/19 04:10 Hct 36.2 % (30.3-42.9) 10/19/19 04:10 MCV 85 fl (79-97) 10/19/19 04:10 MCH 28 pg (28-32) 10/19/19 04:10 MCHC 32 % (30-34) 10/19/19 04:10 RDW 15.9 % (13.2-15.2) H 10/19/19 04:10 Plt Count 664 K/mm3 (140-440) H 10/19/19 04:10 Lymph % (Auto) 11.2 % (13.4-35.0) L 10/19/19 04:10 [place] % (Auto) 11.7 % (0.0-7.3) H 10/19/19 04:10 Eos % (Auto) 0.6 % (0.0-4.3) 10/19/19 04:10 Baso % (Auto) 0.6 % (0.0-1.8) 10/19/19 04:10 Lymph # 1.2 K/mm3 (1.2-5.4) 10/19/19 04:10 [place] # 1.3 K/mm3 (0.0-0.8) H 10/19/19 04:10 Eos # 0.1 K/mm3 (0.0-0.4) 10/19/19 04:10 Baso # 0.1 K/mm3 (0.0-0.1) 10/19/19 04:10 Seg Neutrophils % 75.9 % (40.0-70.0) H 10/19/19 04:10 Seg Neutrophils # 8.3 K/mm3 (1.8-7.7) H 10/19/19 04:10 PT 13.1 Sec. (12.2-14.9) 10/18/19 15:16 INR 0.98 (0.87-1.13) 10/18/19 15:16 APTT 29.7 Sec. (24.2-36.6) 10/18/19 15:16 Sodium 148 mmol/L (137-145) H 10/19/19 04:10 Potassium 3.7 mmol/L (3.6-5.0) D 10/19/19 04:10 Chloride 106.7 mmol/L (98-107) 10/19/19 04:10 Carbon Dioxide 29 mmol/L (22-30) 10/19/19 04:10 Anion Gap 16 mmol/L 10/19/19 04:10 BUN 20 mg/dL (7-17) H 10/19/19 04:10 Creatinine 0.6 mg/dL (0.7-1.2) L 10/19/19 04:10 Estimated GFR > 60 ml/min 10/19/19 04:10 BUN/Creatinine Ratio 33 % 10/19/19 04:10 Glucose 210 mg/dL (65-100) H 10/19/19 04:10 POC Glucose 176 (70-105) H 10/20/19 07:52 Hemoglobin A1c 8.3 % (4-6) H 10/19/19 04:10 Calcium 8.5 mg/dL (8.4-10.2) 10/19/19 04:10 Total Bilirubin 0.30 mg/dL (0.1-1.2) 10/19/19 04:10 AST 13 units/L (5-40) 10/19/19 04:10 ALT 5 units/L (7-56) L 10/19/19 04:10 Alkaline Phosphatase 72 units/L (35-129) 10/19/19 04:10 Ammonia 40.0 umol/L (25-60) 10/18/19 15:16 Total Creatine Kinase 235 units/L (30-135) H 10/18/19 15:16 CK-MB (CK-2) 7.0 ng/mL (0.0-4.0) H 10/18/19 15:16 CK-MB (CK-2) Rel Index 2.9 (0-4) 10/18/19 15:16 Troponin T 0.033 ng/mL (0.00-0.029) H D 10/20/19 07:52 Total Protein 6.3 g/dL (6.3-8.2) 10/19/19 04:10 Albumin 2.7 g/dL (3.9-5) L 10/19/19 04:10 Albumin/Globulin Ratio 0.8 % 10/19/19 04:10 Triglycerides 154 mg/dL (2-149) H 10/18/19 15:16 Cholesterol 184 mg/dL (50-199) 10/18/19 15:16 LDL Cholesterol Direct 115 mg/dL (50-130) 10/18/19 15:16 HDL Cholesterol 40 mg/dL (40-59) 10/18/19 15:16 Cholesterol/HDL Ratio 4.60 % 10/18/19 15:16 TSH 4.560 mlU/mL (0.270-4.200) H 10/18/19 15: Free T4 1.33 ng/dL (0.76-1.46) 10/18/19 15:16 Urine Color Yellow (Yellow) 10/18/19 15: Urine Turbidity Slightly-cloudy (Clear) 10/18/19: Urine pH 5.0 (5.0-7.0) 10/18/19 15: Ur Specific [place] 1.017 (1.003-1.030) 10/18/19 15: Urine Protein 30 mg/dl mg/dL (Negative) 10/18/19: Urine Glucose (UA) >=500 mg/dL (Negative) 10/18/19 15: Urine Ketones 20 mg/dL (Negative) 10/18/19 15: Urine Blood Neg (Negative) 10/18/19: Urine Nitrite Neg (Negative) 10/18/19: Urine Bilirubin Neg (Negative) 10/18/19 15: Urine Urobilinogen 2.0 mg/dL (<2.0) 10/18/19 15: Ur Leukocyte Esterase Mod (Negative) 10/18/19: Urine WBC (Auto) 59.0 /HPF (0.0-6.0) H 10/18/19 15:22 Urine RBC (Auto) 5.0 /HPF (0.0-6.0) 10/18/19 15: U Epithel Cells (Auto) < 1.0 /HPF (0-13.0) 10/18/19: Urine Bacteria (Auto) 2+ /HPF (Negative) 10/18/19 15:22 Urine Mucus 2+ /HPF 10/18/19 15:22 Urine Yeast (Budding) 3+ /HPF 10/18/19 15:22 Valproic Acid 58.8 ug/mL (50-100) 10/18/19 15:42 Plasma/Serum Alcohol < 0.01 % (0-0.07) 10/18/19 15:42 Microbiology: Microbiology 10/18/19 15:22 Urine,Clean Catch Urine Culture - Preliminary Ch/IV: Voiding Method External Female Catheter IV Catheter Type [Right INT / Saline Lock Forearm] Active Medications - Current Medications Current Medications: Generic Name Dose Route Start Last Admin Trade Name Freq PRN Reason Stop Dose Admin Acetaminophen 650 mg 10/19/19 01:33 Tylenol PO Q4H PRN Pain MILD(1-3)/Fever >100.5/FLORES Aspirin 81 mg 10/19/19 10:00 10/19/19 09:40 Baby Aspirin PO 81 mg QDAY SOPHIE Administration Atropine Sulfate 1 mg 10/19/19 18:12 Atropine IV PRN PRN Bradycardia Divalproex Sodium 500 mg 10/19/19 10:00 10/19/19 21:[address] PO 500 mg BID SOPHIE Administration Donepezil HCl 10 mg 10/19/19 22:00 10/19/19 21:58 Aricept PO 10 mg QHS SOPHIE Administration Enoxaparin Sodium 40 mg 10/19/19 22:00 10/19/19 21:57 Enoxaparin SUB-Q 40 mg QDAY@2200 SOPHIE Administration Hydralazine HCl 10 mg 10/19/19 10:40 Apresoline IV Q4H PRN Hypertension Hydromorphone HCl 0.25 mg 10/19/19 01:34 Dilaudid IV Q3H PRN Pain, Moderate (4-6) Sodium Chloride 1,000 mls @ 75 mls/hr 10/19/19 01:45 10/20/19 05:51 Nacl 0.9% 1000 Ml IV 75 mls/hr DIRECT SOPHIE Administration Ceftriaxone Sodium 1 gm in 50 mls @ 100 mls/hr 10/19/19 10:00 10/19/19 09:40 Rocephin/Ns 1 Gm/50 Ml IV 100 mls/hr Q24HR SOPHIE Administration Protocol Insulin Human Lispro 0 unit 10/19/19 07:30 10/19/19 21:58 Humalog SUB-Q Not Given ACHS [facility] Protocol Memantine 10 mg 10/19/19 22:00 10/19/19 21:58 Memantine PO 10 mg HS SOPHIE Administration Metoclopramide HCl 10 mg 10/19/19 01:34 Reglan IV Q6H PRN Nausea And Vomiting Ondansetron HCl 4 mg 10/19/19 01:34 Zofran IV Q8H PRN Nausea And Vomiting Sodium Chloride 10 ml 10/19/19 10:00 10/19/19 21:58 Sodium Chloride Flush Syringe 10 Ml IV 10 ml BID SOPHIE Administration Sodium Chloride 10 ml 10/19/19 01:34 Sodium Chloride Flush Syringe 10 Ml IV PRN PRN LINE FLUSH Nutrition/Malnutrition Assess - Dietary Evaluation Nutrition/Malnutrition Findings: Nutrition Notes Start: 10/19/19 08:34 Freq: Status: Active Protocol: Document 10/19/19 08:34 LP (Rec: 10/19/19 08:46 LP [id number]) Nutrition Notes Need for Assessment 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 Pt with sacral wound. Burn Absent Trauma Absent Minimum of two criteria No physical signs of malnutrition #2 Nutrition Diagnosis Increased nutrient needs ( specify in comment below) Comments: Protein Etiology Wound healing As Evidenced by Signs and Symptoms Pt with sacral wound #1 Nutrition Diagnosis Predicted suboptimal energy intake Etiology Dementia As Evidenced by Signs and Symptoms Pt noted with sacral wound and unable to obtain nutrition hx Is patient on ventilator? No Is Patient Ambulatory and/or Out of Bed No REE-([facility]-confined to bed) [phone] Calculation Used for Recommendations [facility] Additional Notes Protein needs are 97-116g (1. 25-1.5g/kg) Fluid needs are 1ml/kcal Nutrition Intervention Change Diet Order: Continue Add Supplement/Snack (indicate name/kcal Ensure High protein BID /protein ) Provides kCal: 320 Provides Protein (gm) 32 Goal #1 Meet at least 80% of kcal and protein needs Goal #2 Wound healing Anticipated Discharge Needs: Consistent CHO diet with ONS as needed Follow-Up By: 10/22/19 Additional Comments Follow for intakes, ONS tolerance
[2019-10-20] MEDS: cefTRIAXone/NS 1 GM/50 ML 1 GM/50 ML BAG IV SCH (09:52)
[2019-10-20] MEDS: DIVALPROEX DR 500 MG TAB PO SCH ×2 (09:52→22:52)
[2019-10-20] MEDS: ASPIRIN 81 MG TAB CHEW PO SCH (09:52)
--- NOTE | 2019-10-20 16:19 | Consultation ---
History of Present Illness Consult date: 10/20/19 Requesting physician: DEBRA CASEY Consult reason: bradycardia History of present illness: The patient is only partially oriented. She does not know why she's in the hospital. As such, the history was obtained from a review of her medical chart. She is a resident of [facility]. She was brought to the emergency department with a one-week history of altered sensorium. She was reported to be nonverbal at the time of admission. However, during this consultation, she was able to communicate; except that she is mostly disoriented. On the monitor yesterday evening, she had a 2.2 second pause while in sinus bradycardia in the 30s. At about 3 AM today, she had a 2.1 second pause while her baseline rhythm was sinus bradycardia at 39 bpm. She was sleeping at both times. Most of the time, she has been in normal sinus rhythm with heart rate ranging from 60s to 80s and occasional episodes with heart rate in the 40s to 50s. The patient is apparently asymptomatic for the praveena-arrhythmias. Her troponin level is mildly elevated, although there is no complaint of chest pain. Her TSH is also mildly elevated. 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 Past History Past Medical History: other (Details unknown.) Past Surgical History: Other (Details unknown.) Social history: other (Details unknown.) Family history: other (Details unknown.) Medications and Allergies Allergies Allergy/AdvReac Type Severity Reaction Status Date / Time codeine Allergy Unknown Verified 09/11/19 08:21 pravastatin Allergy Unknown Verified 09/11/19 08:21 Home Medications Medication Instructions Recorded Confirmed Last Taken Type Aspirin [Aspirin BABY CHEW TAB] 81 mg PO QDAY 08/15/19 10/18/19 Unknown History Cholecalciferol Vit D3 [Vitamin D3 1,000 units PO QDAY 08/15/19 10/18/19 Unknown History 1,000 UNIT TAB] Divalproex Dr [Beth Alcocer] 500 mg PO BID 08/15/19 10/18/19 Unknown History Ferrous Sulfate [Iron 325 MG] 325 mg PO QDAY 08/15/19 10/18/19 Unknown History Hydroxyzine HCl [hydrOXYzine] 25 mg PO Q6H 08/15/19 10/18/19 Unknown History Insulin Glargine,Hum.rec.anlog 100 unit SQ QDAY 08/15/19 10/18/19 Unknown History [Jacquie Silva U-100] Memantine 10 mg PO HS 08/15/19 10/18/19 Unknown History risperiDONE [RisperDAL] 1 mg PO HS 08/15/19 10/18/19 Unknown History Jacquie Silva U-100 17 units SUB-Q QAC 09/05/19 10/18/19 Unknown History Memantine 5 mg PO QAC 09/05/19 10/18/19 Unknown History Vitamin D3 1,000 UNIT TAB 1 tab PO QDAY 09/05/19 10/18/19 Unknown History clonazePAM 0.5 mg PO BID 09/05/19 10/18/19 Unknown History donepeziL [Aricept] 10 mg PO QHS 09/05/19 10/18/19 Unknown History traMADoL [Ultram 50 MG tab] 50 mg PO Q6HR PRN 09/05/19 10/18/19 Unknown History traZODone [Desyrel] 50 mg PO QHS PRN 09/05/19 10/18/19 Unknown History Acetaminophen [Acetaminophen TAB] 1 tab PO Q4H PRN #15 tablet 09/06/19 10/18/19 Unknown Rx amLODIPine 5 mg PO QDAY #30 tablet 09/06/19 10/18/19 Unknown Rx Active Meds: Active Medications Acetaminophen (Tylenol) 650 mg PO Q4H PRN PRN Reason: Pain MILD(1-3)/Fever >100.5/FLORES Aspirin (Baby Aspirin) 81 mg PO QDAY [facility] Last Admin: 10/20/19 09:52 Dose: 81 mg Documented by: Atropine Sulfate (Atropine) 1 mg IV PRN PRN PRN Reason: Bradycardia Divalproex Sodium (Depakote Dr) 500 mg PO BID [facility] Last Admin: 10/20/19 09:52 Dose: 500 mg Documented by: Donepezil HCl (Aricept) 10 mg PO QHS [facility] Last Admin: 10/19/19 21:58 Dose: 10 mg Documented by: Enoxaparin Sodium (Enoxaparin) 40 mg SUB-Q QDAY@2200 [facility] Last Admin: 10/19/19 21:57 Dose: 40 mg Documented by: Hydralazine HCl (Apresoline) 10 mg IV Q4H PRN PRN Reason: Hypertension Hydromorphone HCl (Dilaudid) 0.25 mg IV Q3H PRN PRN Reason: Pain, Moderate (4-6) Sodium Chloride (Nacl 0.9% 1000 Ml) 1,000 mls @ 75 mls/hr IV DIRECT [facility] Last Admin: 10/20/19 05:51 Dose: 75 mls/hr Documented by: Ceftriaxone Sodium (Rocephin/Ns 1 Gm/50 Ml) 1 gm in 50 mls @ 100 mls/hr IV Q24HR [facility]; Protocol Stop: 10/21/19 12:59 Last Admin: 10/20/19 09:52 Dose: 100 mls/hr Documented by: Insulin Human Lispro (Humalog) 0 unit SUB-Q ACHS [facility]; Protocol Last Admin: 10/20/19 12:34 Dose: 6 unit Documented by: Memantine (Memantine) 10 mg PO HS [facility] Last Admin: 10/19/19 21:58 Dose: 10 mg Documented by: Metoclopramide HCl (Reglan) 10 mg IV Q6H PRN PRN Reason: Nausea And Vomiting Ondansetron HCl (Zofran) 4 mg IV Q8H PRN PRN Reason: Nausea And Vomiting Sodium Chloride (Sodium Chloride Flush Syringe 10 Ml) 10 ml IV BID [facility] Last Admin: 10/19/19 21:58 Dose: 10 ml Documented by: Sodium Chloride (Sodium Chloride Flush Syringe 10 Ml) 10 ml IV PRN PRN PRN Reason: LINE FLUSH Review of Systems Constitutional: no fever, no chills Ears, nose, mouth and throat: no ear pain, no ear discharge, no hoarseness Cardiovascular: no chest pain Respiratory: no shortness of breath Gastrointestinal: no nausea, no vomiting, no diarrhea, no constipation Genitourinary Female: no dysuria, no urinary frequency Rectal: no pain, no bleeding Musculoskeletal: no neck stiffness, no neck pain, no myalgias Integumentary: other (sacral ulcer) Psychiatric: disorientation Endocrine: no cold intolerance, no heat intolerance Hematologic/Lymphatic: no easy bruising, no easy bleeding Allergic/Immunologic: no urticaria, no wheezing Physical Examination Vital Signs Last Vital Signs Temp 97.6 F 10/20/19 16:00 Pulse 90 10/20/19 16:00 Resp 18 10/20/19 16:00 BP 143/51 04/12/20 16:00 Pulse Ox 97 10/20/19 16:00 General appearance: no acute distress HEENT: Positive: EOMI, Normocephaly, Mucus Membranes Moist Neck: Positive: neck supple, trachea midline Cardiac: Positive: Reg Rate and Rhythm, S1/S2 Lungs: Positive: clear to auscultation Neuro: Positive: Other (partially oriented) Abdomen: Positive: Soft, Active Bowel Sounds. Negative: Tender Skin: Positive: Ulceration (sacral decubitus) Extremities: Present: normal. Absent: edema Results 10/19/19 04:10 10/19/19 04:10 - Imaging and Cardiology EKG: image reviewed EKG interpretations - Telemetry EKG Rhythm: Sinus Rhythm - EKG Sinus rhythms and dysrhythmias: sinus rhythm Assessment and Plan Avoid AV blocking medications. With her brief episodes of asymptomatic praveena- arrhythmia occurring during sleep, she may benefit from sleep study as an outpatient. Obtain echocardiogram. In the absence of anginal symptoms, she is probably not a candidate for invasive cardiac evaluation. - Patient Problems (1) Sinus bradycardia Current Visit: Yes Status: Acute (2) Sinus pause Current Visit: Yes Status: Acute (3) Elevated troponin Current Visit: Yes Status: Acute (4) AMS (altered mental status) Current Visit: Yes Status: Acute (5) UTI (urinary tract infection) Current Visit: Yes Status: Acute (6) Dehydration Current Visit: Yes Status: Acute
[2019-10-20] MEDS: DONEPEZIL 10 MG TAB PO SCH (22:52)
[2019-10-20] MEDS: MEMANTINE 10 MG TAB PO SCH (22:52)
[2019-10-20] MEDS: ENOXAPARIN 40 MG/0.4 ML INJ SUB-Q SCH (22:54)
[2019-10-21] MEDS: SODIUM CHLORIDE 0.9% 1000 ML 1,000 ML IV SCH (06:41)
[2019-10-21 07:09] LABS: BUN/Creatinine Ratio 33; Blood Urea Nitrogen 13 mg/dL (7-17); Calcium 8.1 mg/dL (8.4-10.2); Hemolysis Index 4
[2019-10-21] MEDS: INSULIN LISPRO 100 UNIT/ML SUB-Q SCH ×3 (08:11→18:01)
[2019-10-21] MEDS: ASPIRIN 81 MG TAB CHEW PO SCH (10:10)
[2019-10-21] MEDS: DIVALPROEX DR 500 MG TAB PO SCH ×2 (10:10→22:45)
[2019-10-21] MEDS: cefTRIAXone/NS 1 GM/50 ML 1 GM/50 ML BAG IV SCH (10:10)
--- NOTE | 2019-10-21 10:11 | Progress Note ---
Assessment and Plan tte done 09/07/2019 reviewed - EF 60-65%, mod LVH, grade 2 diastolic dysfunction, LA severely dilated, heavy mitral annular calcification, trace MR, mild TR In SR on tele with SB HR low 43bpm noted overnight, no pauses overnight. Cont to avoid AV blocking medications. With her brief episodes of asymptomatic praveena-arrhythmia occurring during sleep, she may benefit from sleep study as an outpatient. The patient has been seen in conjunction with Dr. Espinosa who agrees with the assessment and plan of care. - Patient Problems (1) Sinus bradycardia Current Visit: Yes Status: Acute (2) Sinus pause Current Visit: Yes Status: Acute (3) Elevated troponin Current Visit: Yes Status: Acute (4) AMS (altered mental status) Current Visit: Yes Status: Acute (5) UTI (urinary tract infection) Current Visit: Yes Status: Acute (6) Dehydration Current Visit: Yes Status: Acute Subjective Date of service: 10/21/19 Principal diagnosis: AMS; UTI Interval history: pt resting in bed, no current complaints. in SR on tele with SB HR low 43bpm noted overnight, no pauses overnight. PUI?: No Objective Last Vital Signs Temp 98.3 F 10/21/19 07:21 Pulse 71 10/21/19 07:21 Resp 18 10/21/19 07:21 BP 121/28 10/21/19 07:21 Pulse Ox 100 10/21/19 07:21 - Physical Examination General: No Apparent Distress HEENT: Positive: EOMI, Normocephaly, Mucus Membranes Moist Neck: Positive: neck supple, trachea midline Cardiac: Positive: Reg Rate and Rhythm, S1/S2 Lungs: Positive: Decreased Breath Sounds Neuro: Positive: Other (partially oriented) Abdomen: Positive: Soft, Active Bowel Sounds. Negative: Tender Skin: Positive: Ulceration (sacral decubitus) Extremities: Present: normal. Absent: edema - Labs and Meds Comprehensive Metabolic Panel 10/21/19 Range/Units 05:24 Sodium 141 (137-145) mmol/L Potassium 3.5 L (3.6-5.0) mmol/L Chloride 103.3 (98-107) mmol/L Carbon Dioxide 26 (22-30) mmol/L BUN 13 (7-17) mg/dL Creatinine 0.4 L (0.7-1.2) mg/dL Glucose 162 H (65-100) mg/dL Calcium 8.1 L (8.4-10.2) mg/dL - Imaging and Cardiology EKG: image reviewed - EKG Sinus rhythms and dysrhythmias: sinus rhythm
--- NOTE | 2019-10-21 19:07 | Progress Note ---
Assessment and Plan Assessment and plan: --Brief episode of bradycardia: Resolved Amlodipine DC'd d, today heart rate ranges between 70s to 90s Cardiology evaluated, thyroid tests reviewed --Non-ST elevation MO/nonspecific elevation of troponins Serial cardiac enzymes, Cardiology evaluated No further work-up, Echo 2 months ago normal EF impaired left relaxation of left ventricle --Metabolic encephalopathy; multifactorial Dementia, possible UTI on empiric antibiotics Neurochecks, treat the underlying cause --Possible UTI; IV fluids 3 days empiric antibiotics , cultures negative to date --SIRS : Continue supportive care --Type 2 diabetes mellitus; Accu-Chek sliding scale coverage ADA diet Insulin as needed --Hypertension; moderate control Continue current antihypertensives and PRN medications --History of seizure disorder; Seizure precautions, continue current management --Dementia; probably the cause of altered level of consciousness Continue Aricept memantine --Severe protein calorie malnutrition; Nutrition supplements and supportive care --DVT prophylaxis: SCD, Lovenox --Full CODE STATUS Physical therapy Possible discharge to assisted living with home health/PT Monitor closely and adjust the management as needed Plan of care reviewed with the patient's nurse History Interval history: Patient seen and examined at the bedside Patient's chart, tests, medications, consult recommendations reviewed Patient is more alert and awake Responds to simple questions, confused at times Agitated trying to get off the bed requiring restraints Vital signs reviewed PUI?: No Hospitalist Physical - Constitutional Vitals: Temp Pulse Resp BP Pulse Ox 99.3 F 75 18 121/30 97 10/21/19 15:54 10/21/19 15:54 10/21/19 15:54 10/21/19 15:54 10/21/19 15:54 General appearance: Present: no acute distress, well-nourished, other (More alert today, agitated) - EENT Eyes: Present: PERRL, EOM intact - Neck Neck: Present: supple, normal ROM - Respiratory Respiratory effort: normal Respiratory: bilateral: diminished - Cardiovascular Rhythm: regular Heart Sounds: Present: S1 & S2 - Extremities Extremities: no ischemia, No edema - Abdominal General gastrointestinal: soft, non-tender, non-distended, normal bowel sounds - Integumentary Integumentary: Present: clear, warm - Psychiatric Psychiatric: agitated (Confused at times) - Neurologic Neurologic: moves all extremities Results - Labs CBC & Chem 7: 10/19/19 04:10 10/21/19 05:24 Labs: Laboratory Last Values WBC 10.9 K/mm3 (4.5-11.0) 10/19/19 04:10 RBC 4.24 M/mm3 (3.65-5.03) 10/19/19 04:10 Hgb 11.7 gm/dl (10.1-14.3) 10/19/19 04:10 Hct 36.2 % (30.3-42.9) 10/19/19 04:10 MCV 85 fl (79-97) 10/19/19 04:10 MCH 28 pg (28-32) 10/19/19 04:10 MCHC 32 % (30-34) 10/19/19 04:10 RDW 15.9 % (13.2-15.2) H 10/19/19 04:10 Plt Count 664 K/mm3 (140-440) H 10/19/19 04:10 Lymph % (Auto) 11.2 % (13.4-35.0) L 10/19/19 04:10 [place] % (Auto) 11.7 % (0.0-7.3) H 10/19/19 04:10 Eos % (Auto) 0.6 % (0.0-4.3) 10/19/19 04:10 Baso % (Auto) 0.6 % (0.0-1.8) 10/19/19 04:10 Lymph # 1.2 K/mm3 (1.2-5.4) 10/19/19 04:10 [place] # 1.3 K/mm3 (0.0-0.8) H 10/19/19 04:10 Eos # 0.1 K/mm3 (0.0-0.4) 10/19/19 04:10 Baso # 0.1 K/mm3 (0.0-0.1) 10/19/19 04:10 Seg Neutrophils % 75.9 % (40.0-70.0) H 10/19/19 04:10 Seg Neutrophils # 8.3 K/mm3 (1.8-7.7) H 10/19/19 04:10 PT 13.1 Sec. (12.2-14.9) 10/18/19 15:16 INR 0.98 (0.87-1.13) 10/18/19 15:16 APTT 29.7 Sec. (24.2-36.6) 10/18/19 15:16 Sodium 141 mmol/L (137-145) 10/21/19 05:24 Potassium 3.5 mmol/L (3.6-5.0) L 10/21/19 05:24 Chloride 103.3 mmol/L (98-107) 10/21/19 05:24 Carbon Dioxide 26 mmol/L (22-30) 10/21/19 05:24 Anion Gap 15 mmol/L 10/21/19 05:24 BUN 13 mg/dL (7-17) 10/21/19 05:24 Creatinine 0.4 mg/dL (0.7-1.2) L 10/21/19 05:24 Estimated GFR > 60 ml/min 10/21/19 05:24 BUN/Creatinine Ratio 33 % 10/21/19 05:24 Glucose 162 mg/dL (65-100) H 10/21/19 05:24 POC Glucose 197 (70-105) H 10/21/19 17:01 Hemoglobin A1c 8.3 % (4-6) H 10/19/19 04:10 Calcium 8.1 mg/dL (8.4-10.2) L 10/21/19 05:24 Total Bilirubin 0.30 mg/dL (0.1-1.2) 10/19/19 04:10 AST 13 units/L (5-40) 10/19/19 04:10 ALT 5 units/L (7-56) L 10/19/19 04:10 Alkaline Phosphatase 72 units/L (35-129) 10/19/19 04:10 Ammonia 40.0 umol/L (25-60) 10/18/19 15:16 Total Creatine Kinase 235 units/L (30-135) H 10/18/19 15:16 CK-MB (CK-2) 7.0 ng/mL (0.0-4.0) H 10/18/19 15:16 CK-MB (CK-2) Rel Index 2.9 (0-4) 10/18/19 15:16 Troponin T 0.024 ng/mL (0.00-0.029) 10/21/19 05:24 Total Protein 6.3 g/dL (6.3-8.2) 10/19/19 04:10 Albumin 2.7 g/dL (3.9-5) L 10/19/19 04: Albumin/Globulin Ratio 0.8 % 10/19/19 04:10 Triglycerides 154 mg/dL (2-149) H 10/18/19 15:16 Cholesterol 184 mg/dL (50-199) 10/18/19 15:16 LDL Cholesterol Direct 115 mg/dL (50-130) 10/18/19 15:16 HDL Cholesterol 40 mg/dL (40-59) 10/18/19 15:16 Cholesterol/HDL Ratio 4.60 % 10/18/19 15:16 TSH 4.560 mlU/mL (0.270-4.200) H 10/18/19 15:16 Free T4 1.33 ng/dL (0.76-1.46) 10/18/19 15:16 Urine Color Yellow (Yellow) 10/18/19 15: Urine Turbidity Slightly-cloudy (Clear) 10/18/19 15: Urine pH 5.0 (5.0-7.0) 10/18/19 15: Ur Specific [place] 1.017 (1.003-1.030) 10/18/19 15: Urine Protein 30 mg/dl mg/dL (Negative) 10/18/19 15: Urine Glucose (UA) >=500 mg/dL (Negative) 10/18/19 15: Urine Ketones 20 mg/dL (Negative) 10/18/19 15:22 Urine Blood Neg (Negative) 10/18/19 15: Urine Nitrite Neg (Negative) 10/18/19 15:22 Urine Bilirubin Neg (Negative) 10/18/19 15: Urine Urobilinogen 2.0 mg/dL (<2.0) 10/18/19 15:22 Ur Leukocyte Esterase Mod (Negative) 10/18/19 15:22 Urine WBC (Auto) 59.0 /HPF (0.0-6.0) H 10/18/19 15:22 Urine RBC (Auto) 5.0 /HPF (0.0-6.0) 10/18/19 15: U Epithel Cells (Auto) < 1.0 /HPF (0-13.0) 10/18/19 15:22 Urine Bacteria (Auto) 2+ /HPF (Negative) 10/18/19 15:22 Urine Mucus 2+ /HPF 10/18/19 15:22 Urine Yeast (Budding) 3+ /HPF 10/18/19 15:22 Valproic Acid 58.8 ug/mL (50-100) 10/18/19 15:42 Plasma/Serum Alcohol < 0.01 % (0-0.07) 10/18/19 15:42 Ch/IV: Voiding Method External Female Catheter IV Catheter Type [Right INT / Saline Lock Forearm] Active Medications - Current Medications Current Medications: Generic Name Dose Route Start Last Admin Trade Name Freq PRN Reason Stop Dose Admin Acetaminophen 650 mg 10/19/19 01:33 Tylenol PO Q4H PRN Pain MILD(1-3)/Fever >100.5/FLORES Aspirin 81 mg 10/19/19 10:00 10/21/19 10:10 Baby Aspirin PO 81 mg QDAY [facility] Administration Atropine Sulfate 1 mg 10/19/19 18:12 Atropine IV PRN PRN Bradycardia Divalproex Sodium 500 mg 10/19/19 10:00 10/21/19 10:[address] PO 500 mg BID [facility] Administration Donepezil HCl 10 mg 10/19/19 22:00 10/20/19 22:52 Aricept PO 10 mg QHS [facility] Administration Enoxaparin Sodium 40 mg 10/19/19 22:00 10/20/19 22:54 Enoxaparin SUB-Q 40 mg QDAY@2200 [facility] Administration Hydralazine HCl 10 mg 10/19/19 10:40 10/21/19 01:14 Apresoline IV 10 mg Q4H PRN Administration Hypertension Hydromorphone HCl 0.25 mg 10/19/19 01:34 Dilaudid IV Q3H PRN Pain, Moderate (4-6) Sodium Chloride 1,000 mls @ 75 mls/hr 10/19/19 01:45 10/21/19 06:41 Nacl 0.9% 1000 Ml IV 75 mls/hr DIRECT [facility] Administration Insulin Human Lispro 0 unit 10/19/19 07:30 10/21/19 18:01 Humalog SUB-Q 2 unit ACHS [facility] Administration Protocol Memantine 10 mg 10/19/19 22:00 10/20/19 22:52 Memantine PO 10 mg HS [facility] Administration Metoclopramide HCl 10 mg 10/19/19 01:34 Reglan IV Q6H PRN Nausea And Vomiting Ondansetron HCl 4 mg 10/19/19 01:34 Zofran IV Q8H PRN Nausea And Vomiting Sodium Chloride 10 ml 10/19/19 10:00 10/20/19 22:53 Sodium Chloride Flush Syringe 10 Ml IV 10 ml BID [facility] Administration Sodium Chloride 10 ml 10/19/19 01:34 Sodium Chloride Flush Syringe 10 Ml IV PRN PRN LINE FLUSH Nutrition/Malnutrition Assess - Dietary Evaluation Nutrition/Malnutrition Findings: Nutrition Notes Start: 10/19/19 08:34 Freq: Status: Active Protocol: Document 10/19/19 08:34 LP (Rec: 10/19/19 08:46 LP [id number]) Nutrition Notes Need for Assessment generated from: field service analyst Initial or Follow up Assessment Current Diagnosis Decubitus(Pressure Ulcer), Diabetes,Hypertension Other Pertinent Diagnosis UTI, AMS Current Diet Consistent CHO Labs/Tests Na 148 BUN 20 BG 210 A1C 8.3 Pertinent Medications NS at 75ml/hr Height 5 ft 5 in Weight 77.564 kg [place] Body Weight (kg) 56.81 BMI 28.4 Weight Status Overweight Subjective/Other Information Screen for skin risk (10). Pt with sacral wound. Burn Absent Trauma Absent Minimum of two criteria No physical signs of malnutrition #2 Nutrition Diagnosis Increased nutrient needs ( specify in comment below) Comments: Protein Etiology Wound healing As Evidenced by Signs and Symptoms Pt with sacral wound #1 Nutrition Diagnosis Predicted suboptimal energy intake Etiology Dementia As Evidenced by Signs and Symptoms Pt noted with sacral wound and unable to obtain nutrition hx Is patient on ventilator? No Is Patient Ambulatory and/or Out of Bed No REE-([facility]-confined to bed) 1567.512 Calculation Used for Recommendations [facility] Additional Notes Protein needs are 97-116g (1. 25-1.5g/kg) Fluid needs are 1ml/kcal Nutrition Intervention Change Diet Order: Continue Add Supplement/Snack (indicate name/kcal Ensure High protein BID /protein ) Provides kCal: 320 Provides Protein (gm) 32 Goal #1 Meet at least 80% of kcal and protein needs Goal #2 Wound healing Anticipated Discharge Needs: Consistent CHO diet with ONS as needed Follow-Up By: 10/22/19 Additional Comments Follow for intakes, ONS tolerance
[2019-10-21] MEDS: MEMANTINE 10 MG TAB PO SCH (22:45)
[2019-10-21] MEDS: ENOXAPARIN 40 MG/0.4 ML INJ SUB-Q SCH (22:45)
[2019-10-21] MEDS: DONEPEZIL 10 MG TAB PO SCH (22:45)
[2019-10-22] MEDS: INSULIN LISPRO 100 UNIT/ML SUB-Q SCH ×5 (00:20→22:46)
--- NOTE | 2019-10-22 09:34 | Progress Note ---
Assessment and Plan tte done 09/07/2019 reviewed - EF 60-65%, mod LVH, grade 2 diastolic dysfunction, LA severely dilated, heavy mitral annular calcification, trace MR, mild TR in SR on tele with SB HR low 43bpm noted overnight, a few bouts of Mobitz 2:1 AV block noted while asleep. Cont to avoid AV blocking medications. With her brief episodes of asymptomatic praveena-arrhythmia occurring during sleep, she may benefit from sleep study as an outpatient. Optimize BPs - resume home amlodipine. Currently stable cardiac status. Nothing further to add from cardiac perspective at this time. Will sign off. Recommend pt follow up in our office with Dr. Sommers within 2 weeks of discharge ([phone]). The patient has been seen in conjunction with Dr. Espinosa who agrees with the assessment and plan of care. - Patient Problems (1) Sinus bradycardia Current Visit: Yes Status: Acute (2) Sinus pause Current Visit: Yes Status: Acute (3) AV block Current Visit: Yes Status: Acute (4) Elevated troponin Current Visit: Yes Status: Acute (5) AMS (altered mental status) Current Visit: Yes Status: Acute (6) UTI (urinary tract infection) Current Visit: Yes Status: Acute (7) Dehydration Current Visit: Yes Status: Acute Subjective Date of service: 10/22/19 Principal diagnosis: AMS; UTI Interval history: pt resting in bed, no current complaints. in SR on tele with SB HR low 43bpm noted overnight, a few bouts of Mobitz 2:1 AV block noted while asleep. PUI?: No Objective Last Vital Signs Temp 98.6 F 10/22/19 08:03 Pulse 90 10/22/19 08:03 Resp 18 10/22/19 08:03 BP 171/54 10/22/19 08:03 Pulse Ox 97 10/22/19 08:03 - Physical Examination General: No Apparent Distress HEENT: Positive: EOMI, Normocephaly, Mucus Membranes Moist Neck: Positive: neck supple, trachea midline Cardiac: Positive: Reg Rate and Rhythm, S1/S2 Lungs: Positive: Decreased Breath Sounds Neuro: Positive: Other (partially oriented) Abdomen: Positive: Soft, Active Bowel Sounds. Negative: Tender Skin: Positive: Ulceration (sacral decubitus) Extremities: Present: normal. Absent: edema - Imaging and Cardiology EKG: image reviewed - EKG Sinus rhythms and dysrhythmias: sinus rhythm
[2019-10-22] MEDS: ASPIRIN 81 MG TAB CHEW PO SCH (10:04)
[2019-10-22] MEDS: DIVALPROEX DR 500 MG TAB PO SCH ×2 (10:32→22:12)
[2019-10-22] MEDS: amLODIPine 5 MG TAB PO SCH (13:02)
[2019-10-22] MEDS: SODIUM CHLORIDE 0.9% 1000 ML 1,000 ML IV SCH (18:22)
--- NOTE | 2019-10-22 19:34 | Progress Note ---
Assessment and Plan Assessment and plan: --Patient had black stool this morning. Stool sent for occult blood. Closely monitor --Physical therapy, to evaluate for DC needs If stool test is negative, PT evaluation is reasonable We may discharge the patient later this evening or tomorrow back to SNF; --Brief episode of bradycardia: Resolved Amlodipine DC'd d, heart rate ranges between 70s to 90s Cardiology evaluated, 2-1 block , continue current management Follow-up in the office 2 weeks .thyroid tests reviewed --Non-ST elevation [place]/nonspecific elevation of troponins Serial cardiac enzymes, Cardiology evaluated No further work-up, Echo 2 months ago normal EF impaired left relaxation of left ventricle --Metabolic encephalopathy; multifactorial Dementia, possible UTI on empiric antibiotics Neurochecks, treat the underlying cause --Possible UTI; IV fluids 3 days empiric antibiotics , cultures negative to date --SIRS : Continue supportive care --Type 2 diabetes mellitus; Accu-Chek sliding scale coverage ADA diet Insulin as needed --Hypertension; moderate control Continue current antihypertensives and PRN medications --History of seizure disorder; Seizure precautions, continue current management --Dementia; probably the cause of altered level of consciousness Continue Aricept memantine --Severe protein calorie malnutrition; Nutrition supplements and supportive care --DVT prophylaxis: SCD, Lovenox --Full CODE STATUS Physical therapy Possible discharge to assisted living/SNF with home health/PT Monitor closely and adjust the management as needed Plan of care reviewed with the patient's nurse History Interval history: Patient seen and examined at the bedside Patient's chart medications reviewed Patient had black stool this afternoon Pleasantly confused Not in acute distress Vital signs reviewed PUI?: No Hospitalist Physical - Constitutional Vitals: Temp Pulse Resp BP Pulse Ox 98.4 F 70 18 143/35 96 10/22/19 16:46 10/22/19 16:46 10/22/19 16:46 10/22/19 16:46 10/22/19 16:46 General appearance: Present: no acute distress, well-nourished, other (Confused) - EENT Eyes: Present: PERRL, EOM intact - Neck Neck: Present: supple, normal ROM - Respiratory Respiratory effort: normal Respiratory: bilateral: diminished, negative: rales, rhonchi, wheezing - Cardiovascular Rhythm: regular Heart Sounds: Present: S1 & S2 - Extremities Extremities: no ischemia, No edema - Abdominal General gastrointestinal: soft, non-tender, non-distended, normal bowel sounds - Integumentary Integumentary: Present: clear, warm - Psychiatric Psychiatric: cooperative, other (Confused) - Neurologic Neurologic: moves all extremities Results - Labs CBC & Chem 7: 10/19/19 04:10 10/21/19 05:24 Labs: Laboratory Last Values WBC 10.9 K/mm3 (4.5-11.0) 10/19/19 04:10 RBC 4.24 M/mm3 (3.65-5.03) 10/19/19 04:10 Hgb 11.7 gm/dl (10.1-14.3) 10/19/19 04:10 Hct 36.2 % (30.3-42.9) 10/19/19 04:10 MCV 85 fl (79-97) 10/19/19 04:10 MCH 28 pg (28-32) 10/19/19 04:10 MCHC 32 % (30-34) 10/19/19 04:10 RDW 15.9 % (13.2-15.2) H 10/19/19 04:10 Plt Count 664 K/mm3 (140-440) H 10/19/19 04:10 Lymph % (Auto) 11.2 % (13.4-35.0) L 10/19/19 04:10 Luce % (Auto) 11.7 % (0.0-7.3) H 10/19/19 04:10 Eos % (Auto) 0.6 % (0.0-4.3) 10/19/19 04:10 Baso % (Auto) 0.6 % (0.0-1.8) 10/19/19 04:10 Lymph # 1.2 K/mm3 (1.2-5.4) 10/19/19 04:10 Luce # 1.3 K/mm3 (0.0-0.8) H 10/19/19 04:10 Eos # 0.1 K/mm3 (0.0-0.4) 10/19/19 04:10 Baso # 0.1 K/mm3 (0.0-0.1) 10/19/19 04:10 Seg Neutrophils % 75.9 % (40.0-70.0) H 10/19/19 04:10 Seg Neutrophils # 8.3 K/mm3 (1.8-7.7) H 10/19/19 04:10 PT 13.1 Sec. (12.2-14.9) 10/18/19 15:16 INR 0.98 (0.87-1.13) 10/18/19 15:16 APTT 29.7 Sec. (24.2-36.6) 10/18/19 15:16 Sodium 141 mmol/L (137-145) 10/21/19 05:24 Potassium 3.5 mmol/L (3.6-5.0) L 10/21/19 05:24 Chloride 103.3 mmol/L (98-107) 10/21/19 05:24 Carbon Dioxide 26 mmol/L (22-30) 10/21/19 05:24 Anion Gap 15 mmol/L 10/21/19 05:24 BUN 13 mg/dL (7-17) 10/21/19 05:24 Creatinine 0.4 mg/dL (0.7-1.2) L 10/21/19 05:24 Estimated GFR > 60 ml/min 10/21/19 05:24 BUN/Creatinine Ratio 33 % 10/21/19 05:24 Glucose 162 mg/dL (65-100) H 10/21/19 05:24 POC Glucose 265 (70-105) H 10/22/19 16:59 Hemoglobin A1c 8.3 % (4-6) H 10/19/19 04:10 Calcium 8.1 mg/dL (8.4-10.2) L 10/21/19 05:24 Total Bilirubin 0.30 mg/dL (0.1-1.2) 10/19/19 04:10 AST 13 units/L (5-40) 10/19/19 04:10 ALT 5 units/L (7-56) L 10/19/19 04:10 Alkaline Phosphatase 72 units/L (35-129) 10/19/19 04:10 Ammonia 40.0 umol/L (25-60) 10/18/19 15:16 Total Creatine Kinase 235 units/L (30-135) H 10/18/19 15:16 CK-MB (CK-2) 7.0 ng/mL (0.0-4.0) H 10/18/19 15:16 CK-MB (CK-2) Rel Index 2.9 (0-4) 10/18/19 15:16 Troponin T 0.024 ng/mL (0.00-0.029) 10/21/19 05:24 Total Protein 6.3 g/dL (6.3-8.2) 10/19/19 04: Albumin 2.7 g/dL (3.9-5) L 10/19/19 04:10 Albumin/Globulin Ratio 0.8 % 10/19/19 04:10 Triglycerides 154 mg/dL (2-149) H 10/18/19 15:16 Cholesterol 184 mg/dL (50-199) 10/18/19 15:16 LDL Cholesterol Direct 115 mg/dL (50-130) 10/18/19 15:16 HDL Cholesterol 40 mg/dL (40-59) 10/18/19 15:16 Cholesterol/HDL Ratio 4.60 % 10/18/19 15:16 TSH 4.560 mlU/mL (0.270-4.200) H 10/18/19 15:16 Free T4 1.33 ng/dL (0.76-1.46) 10/18/19 15:16 Urine Color Yellow (Yellow) 10/18/19 15: Urine Turbidity Slightly-cloudy (Clear) 10/18/19 15: Urine pH 5.0 (5.0-7.0) 10/18/19 15:22 Ur Specific [place] 1.017 (1.003-1.030) 10/18/19 15: Urine Protein 30 mg/dl mg/dL (Negative) 10/18/19 15: Urine Glucose (UA) >=500 mg/dL (Negative) 10/18/19 15: Urine Ketones 20 mg/dL (Negative) 10/18/19 15:22 Urine Blood Neg (Negative) 10/18/19: Urine Nitrite Neg (Negative) 10/18/19: Urine Bilirubin Neg (Negative) 10/18/19 15:22 Urine Urobilinogen 2.0 mg/dL (<2.0) 10/18/19 15:22 Ur Leukocyte Esterase Mod (Negative) 10/18/19 15:22 Urine WBC (Auto) 59.0 /HPF (0.0-6.0) H 04/10/20 15:22 Urine RBC (Auto) 5.0 /HPF (0.0-6.0) 10/18/19 15:22 U Epithel Cells (Auto) < 1.0 /HPF (0-13.0) 10/18/19 15:22 Urine Bacteria (Auto) 2+ /HPF (Negative) 10/18/19 15:22 Urine Mucus 2+ /HPF 10/18/19 15:22 Urine Yeast (Budding) 3+ /HPF 10/18/19 15:22 Valproic Acid 58.8 ug/mL (50-100) 10/18/19 15:42 Plasma/Serum Alcohol < 0.01 % (0-0.07) 10/18/19 15:42 Microbiology: Microbiology 10/22/19 Unknown Stool Stool Occult Blood (JAMES) - Final Ch/IV: Voiding Method External Female Catheter IV Catheter Type [Right INT / Saline Lock Forearm] Active Medications - Current Medications Current Medications: Generic Name Dose Route Start Last Admin Trade Name Freq PRN Reason Stop Dose Admin Acetaminophen 650 mg 10/19/19 01:33 Tylenol PO Q4H PRN Pain MILD(1-3)/Fever >100.5/FLORES Amlodipine Besylate 5 mg 10/22/19 10:00 10/22/19 13:02 Amlodipine PO 5 mg QDAY SOPHIE Administration Aspirin 81 mg 10/19/19 10:00 10/22/19 10:04 Baby Aspirin PO 81 mg QDAY SOPHIE Administration Atropine Sulfate 1 mg 10/19/19 18:12 Atropine IV PRN PRN Bradycardia Divalproex Sodium 500 mg 10/19/19 10:00 10/22/19 10:[address] PO 500 mg BID SOPHEI Administration Donepezil HCl 10 mg 10/19/19 22:00 10/21/19 22:45 Aricept PO 10 mg QHS SOPHIE Administration Enoxaparin Sodium 40 mg 10/19/19 22:00 10/21/19 22:45 Enoxaparin SUB-Q 40 mg QDAY@2200 SOPHIE Administration Hydralazine HCl 10 mg 10/19/19 10:40 10/21/19 01:14 Apresoline IV 10 mg Q4H PRN Administration Hypertension Hydromorphone HCl 0.25 mg 10/19/19 01:34 Dilaudid IV Q3H PRN Pain, Moderate (4-6) Sodium Chloride 1,000 mls @ 75 mls/hr 10/19/19 01:45 10/22/19 18:22 Nacl 0.9% 1000 Ml IV 75 mls/hr DIRECT SOPHIE Administration Insulin Human Lispro 0 unit 10/19/19 07:30 10/22/19 18:19 Humalog SUB-Q 4 unit ACHS SOPHIE Administration Protocol Memantine 10 mg 10/19/19 22:00 10/21/19 22:45 Memantine PO 10 mg HS OSPHIE Administration Metoclopramide HCl 10 mg 10/19/19 01:34 Reglan IV Q6H PRN Nausea And Vomiting Ondansetron HCl 4 mg 10/19/19 01:34 Zofran IV Q8H PRN Nausea And Vomiting Sodium Chloride 10 ml 10/19/19 10:00 10/22/19 10:05 Sodium Chloride Flush Syringe 10 Ml IV 10 ml BID SOPHIE Administration Sodium Chloride 10 ml 10/19/19 01:34 Sodium Chloride Flush Syringe 10 Ml IV PRN PRN LINE FLUSH Nutrition/Malnutrition Assess - Dietary Evaluation Nutrition/Malnutrition Findings: Nutrition Notes Start: 10/19/19 08:34 Freq: Status: Active Protocol: Document 10/22/19 09:52 LP (Rec: 10/22/19 09:56 LP [id number]) Nutrition Notes Initial or Follow up Reassessment Current Diagnosis Decubitus(Pressure Ulcer), Diabetes,Hypertension Other Pertinent Diagnosis UTI, AMS Current Diet Consistent CHO Labs/Tests Reviewed Pertinent Medications Reviewed Height 5 ft 5 in Weight 77.8 kg Usual Body Weight 3 kg [place] Body Weight (kg) 56.81 BMI 28.5 Subjective/Other Information Pt consuming 50% of meals. Burn Absent Trauma Absent Minimum of two criteria No physical signs of malnutrition #3 Nutrition Diagnosis Inadequate oral intake Etiology poor appetite As Evidenced by Signs and Symptoms Meeting 67% of kcal and 46% of protein needs #2 Nutrition Diagnosis Increased nutrient needs ( specify in comment below) Diagnosis Progress(for reassessment Continues documentation) #1 Nutrition Diagnosis Predicted suboptimal energy intake As Evidenced by Signs and Symptoms Meeting 67% of kcal and 46% of protein needs Diagnosis Progress(for reassessment Resolved documentation) Is patient on ventilator? No Is Patient Ambulatory and/or Out of Bed No REE-([facility]-confined to bed) 1570.344 Calculation Used for Recommendations Tiffany Chance Additional Notes Protein needs are 97-116g (1. 25-1.5g/kg) Fluid needs are 1ml/kcal Nutrition Intervention Change Diet Order: Continue Add Supplement/Snack (indicate name/kcal Ensure High protein BID /protein ) Provides kCal: 320 Provides Protein (gm) 32 Goal #1 Meet at least 80% of kcal and protein needs Goal #2 Wound healing Anticipated Discharge Needs: Consistent CHO diet with ONS as needed Follow-Up By: 10/24/19 Additional Comments Follow for intakes
[2019-10-22] MEDS: MEMANTINE 10 MG TAB PO SCH (22:12)
[2019-10-22] MEDS: ENOXAPARIN 40 MG/0.4 ML INJ SUB-Q SCH (22:12)
[2019-10-22] MEDS: DONEPEZIL 10 MG TAB PO SCH (22:12)
[2019-10-22] MEDS: DIVALPROEX SPRINKLE 125 MG CAP PO SCH (22:42)
[2019-10-23] MEDS: INSULIN LISPRO 100 UNIT/ML SUB-Q SCH ×3 (10:18→16:55)
[2019-10-23] MEDS: ASPIRIN 81 MG TAB CHEW PO SCH (10:25)
[2019-10-23] MEDS: DIVALPROEX SPRINKLE 125 MG CAP PO SCH (10:25)
[2019-10-23] MEDS: amLODIPine 5 MG TAB PO SCH (10:25)
--- NOTE | 2019-10-23 15:00 | Discharge Summary ---
Providers - Providers Date of Admission: 10/18/19 18:13 Date of discharge: 10/23/19 Attending physician: DEBRA CASEY 10/19/19 17:37 Consult to Physician [CONS] Routine Comment: Consulting Provider: SHAYLA FRANCOIS Physician Instructions: Reason For Exam: bradycardia 10/21/19 19:23 Physical Therapy Evaluation and Treat [CONS] Routine Comment: Reason For Exam: General debility/for DC needs [facility] Reason for admission: Altered level of consciousness/metabolic encephalopathy Condition: Fair Pertinent studies: CT head without contrast Hospital course: The patient is a 68-year-old female present with a chief complaint of altered mental status. The patient reportedly lives at [facility]. EMS reports the patient has had worsening altered mental status for 1 week. The patient is nonverbal and does not make eye contact. Patient does not respond verbally to his sternal rub. Admitted symptomatically managed empirically treated for 3 days of antibiotics for UTI Cultures negative to date, also evaluated by cardiology for brief episode of bradycardia as well as some 2:1 block No new treatment advised, patient will follow with senior billing consultant in 2 weeks Today patient is comfortable pleasantly confused Vital signs reviewed Hemodynamically and clinically stable for discharge and transfer to [facility] Discharge diagnosis and management --Brief episode of bradycardia: Resolved Amlodipine DC'd d, heart rate ranges between 70s to 90s Cardiology evaluated, 2-1 block , continue current management Follow-up in the office 2 weeks .thyroid tests reviewed --Non-ST elevation ND/nonspecific elevation of troponins Serial cardiac enzymes, Cardiology evaluated No further work-up, Echo 2 months ago normal EF impaired left relaxation of left ventricle --Metabolic encephalopathy; multifactorial Dementia, possible UTI on empiric antibiotics Neurochecks, treat the underlying cause --Possible UTI; IV fluids 3 days empiric antibiotics , cultures negative to date --SIRS : Continue supportive care --Type 2 diabetes mellitus; Accu-Chek sliding scale coverage ADA diet Insulin as needed --Hypertension; moderate control Continue current antihypertensives and PRN medications --History of seizure disorder; Seizure precautions, continue current management --Dementia; probably the cause of altered level of consciousness Continue Aricept memantine --Severe protein calorie malnutrition; Nutrition supplements and supportive care --DVT prophylaxis: SCD, Lovenox --Full CODE STATUS stable at dischsrge Disposition: DC/[place]-70 ANOTHER TYPE HLTHCARE Time spent for discharge: 32 min Core Measure Documentation - Palliative Care Palliative Care/ Comfort Measures: Not Applicable - Core Measures Any of the following diagnoses?: none Exam - Constitutional Vitals: Temp Pulse Resp BP Pulse Ox 97.9 F 63 18 142/32 100 10/23/19 10:34 10/23/19 10:34 10/23/19 10:34 10/23/19 10:34 10/23/19 10:34 General appearance: Present: no acute distress, well-nourished - EENT Eyes: Present: PERRL, EOM intact - Neck Neck: Present: supple, normal ROM - Respiratory Respiratory effort: normal Respiratory: bilateral: diminished, negative: rales, rhonchi, wheezing - Cardiovascular Rhythm: regular Heart Sounds: Present: S1 & S2 - Extremities Extremities: no ischemia, No edema - Abdominal General gastrointestinal: Present: soft, non-tender, non-distended, normal bowel sounds - Integumentary Integumentary: Present: clear, warm - Musculoskeletal Musculoskeletal: strength equal bilaterally - Psychiatric Psychiatric: appropriate mood/affect, cooperative - Neurologic Neurologic: CNII-XII intact, moves all extremities Plan Activity: advance as tolerated, fall precautions Diet: diabetic Additional Instructions: Fall precautions. aspiration precautions. Restraint for safety if needed Follow up with: ROJELIO PONCE MD [Primary Care Provider] - 3-5 Days SHAYLA FRANCOIS MD [Staff Physician] - 7 Days
[2019-10-23 16:14] VITALS: BP 151/52
== END 2019-10-23 17:15 | DRG 70 ==
LOC: ED 14:24 → 4A 18:13
PROVIDERS: ADMIT Internal Medicine; ATTEND Internal Medicine
DX: G93.41 Metabolic encephalopathy (principal); I21.A1 Myocardial infarction type 2; E43 Unspecified severe protein-calorie malnutrition; N39.0 Urinary tract infection, site not specified; R65.10 Systemic inflammatory response syndrome (SIRS) of non-infectious origin without acute organ dysfunction; F03.90 Unspecified dementia, unspecified severity, without behavioral disturbance, psychotic disturbance, mood disturbance, and anxiety; E11.9 Type 2 diabetes mellitus without complications; I10 Essential (primary) hypertension; G40.909 Epilepsy, unspecified, not intractable, without status epilepticus; I44.30 Unspecified atrioventricular block; I49.5 Sick sinus syndrome; E86.0 Dehydration; Z88.5 Allergy status to narcotic agent; Z68.29 Body mass index [BMI] 29.0-29.9, adult; Z79.899 Other long term (current) drug therapy; Z79.82 Long term (current) use of aspirin
CPT/HCPCS: 36415; 70450; 80048; 80053; 80061; 80164; 80320; 81001; 82140; 82270; 82550; 82553; 82962; 83036; 84439; 84443; 84484; 85025; 85610; 85730; 87086; 93005; 93010; G0378; G0480; J0360; J0696; J1650; J1815; J1956; J7030